=== PATIENT | female | born 1935 | race Caucasian/White ===

== ENCOUNTER 2017-04-12 09:34 | Day surgery (SDC) | payer MEDICARE, SELFPAY | END 2017-04-12 12:30 | disposition home or self-care (01) | PROVIDERS: Family Provider Family Medicine; Visit Provider Otolaryngology | DX: C44.319 Basal cell carcinoma of skin of other parts of face | CPT/HCPCS: 14040; 96375 ==

== ENCOUNTER → 2017-05-14 15:15 | Outpatient (CLI) | payer MEDICARE, SELFPAY ==
[2017-05-14 15:22] LABS: Microscopic, Urine URINE MICROSCOPIC (MICROSCOPIC)
[2017-05-14 15:34] LABS: Appearance,Urine CLOUDY (Clear); Bilirubin,Urine Negative (Negative); Blood, Urine TRACE-I (Negative); Color,Urine YELLOW (Yellow); Glucose,Urine (UA) Negative (Negative); Ketones,Urine Negative (Negative); Leukocyte Esterase,Urine LARGE (Negative); Nitrate,Urine Negative (Negative); PH,Urine 5.5 (5.0-8.5); Protein,Urine Negative (Negative); Urobilinogen,Urine 0.2 EU/dl (0.2)
[2017-05-14 16:01] LABS: Bacteria,Urine 2+ /lpf; Squamous Epithelial Cell,Urine Occasional #/hpf (0-5); WBC,Urine TNTC #/hpf (0-3)
== END ==
PROVIDERS: PCP Family Medicine; Visit Provider Family Medicine
DX: N39.0 Urinary tract infection, site not specified (principal)
CPT/HCPCS: 81001; 87086; 87088; 87186

== ENCOUNTER → 2017-06-07 10:44 | Outpatient (CLI) | payer MEDICARE, SELFPAY ==
[2017-06-07 10:53] LABS: Microscopic, Urine URINE MICROSCOPIC (MICROSCOPIC)
[2017-06-07 11:51] LABS: Appearance,Urine CLOUDY (Clear); Bilirubin,Urine Negative (Negative); Blood, Urine 2+ (Negative); Color,Urine YELLOW (Yellow); Glucose,Urine (UA) Negative (Negative); Ketones,Urine Negative (Negative); Leukocyte Esterase,Urine 2+ (Negative); Nitrate,Urine Negative (Negative); Protein,Urine 1+ (Negative); Specific Gravity, Urine 1.025 (1.005-1.030); Urobilinogen,Urine 0.2 EU/dl (0.2)
[2017-06-07 12:23] LABS: Bacteria,Urine 3+ /lpf; WBC,Urine 20-50 #/hpf (0-3)
== END ==
PROVIDERS: PCP Family Medicine; Visit Provider Family Medicine
DX: R35.0 Frequency of micturition (principal)
CPT/HCPCS: 81001; 87086; 87088; 87186

== ENCOUNTER → 2017-06-12 12:02 | Outpatient (CLI) | payer MEDICARE, SELFPAY ==
[2017-06-12 12:18] LABS: Basophils # 0.1 K/mm3 (0-0.2); Eosinophils # 0.4 K/mm3 (0.0-0.4); Eosinophils % 5.1 % (0.1-12.0); Hemoglobin 11.2 g/dL (12.2-16.2); Lymphocytes # 1.9 K/mm3 (0.7-4.5); Lymphocytes % 24.5 K/mm3 (10-50); Mean Corpuscular HGB Conc 31.1 g/dL (31.8-35.4); Mean Corpuscular Hemoglobin 27.6 pg (27.0-31.2); Mean Corpuscular Volume 88.8 fl (81-99); Monocytes # 0.6 K/mm3 (0.1-1.0); Monocytes % 7.2 % (1.7-9.3); Neutrophils # 4.7 K/mm3 (1.8-7.8); Neutrophils % 62.2 % (37.0-80.0); Platelet Count 363 K/mm3 (142-424); Red Blood Count 4.05 M/mm3 (4.20-5.40); Red Cell Distribution Width 15.2 % (11.5-17.5); White Blood Count 7.6 K/mm3 (4.8-10.8)
[2017-06-12 13:37] LABS: Anion Gap 11.6 mEq/L (5-15); Blood Urea Nitrogen 30 mg/dL (7-18); Carbon Dioxide 26 mmol/L (21.0-32.0); Chloride 106 mmol/L (98-107); Creatinine,Serum 1.82 mg/dL (0.55-1.02); Estimated Glomerular Filt Rate 27 ml/min (>60); GFR (African American) 32 ML/MIN (>60); Glucose 119 mg/dL (74-106); Potassium 4.6 mmoL/L (3.5-5.1); Sodium 139 mmol/L (136-145)
== END ==
PROVIDERS: PCP Family Medicine; Visit Provider Surgery
DX: Z01.818 Encounter for other preprocedural examination (principal); K43.2 Incisional hernia without obstruction or gangrene
CPT/HCPCS: 36415; 80048; 85025; 93005

== ENCOUNTER 2017-06-20 14:43 | Inpatient (IN) | payer MEDICARE, SELFPAY ==
[2017-06-12 12:43] VITALS: BMI 23.6
[2017-06-20] VITALS (34 sets, daily range): BP systolic 144–196; BP diastolic 71–113; PULSE 68–93; RESP 16–26; TEMP 36.2–43; O2SAT 93–99; BMI 23.3
--- NOTE | 2017-06-20 08:00 | P.PN_ITS ---
[facility] Anesthesia Checklist - Patient Identification Patient Identification: Arm Band - Structural Data Admitted From: Home Planned Operative Procedure/s: lap ventral hernia repair Consent for Planned Operative Procedure(s) Verified: Yes Verified Documents: Surgical Consent, History and Physical - NPO Status Verified Time NPO: 00:00 - Additional verifications Anesthesia Reactions: No - Airway Assessment C-Spine Mobility Assessed: Yes (mp2) TMJ Mobility Assessed: Yes Dentition: Good Dentition - Neurological Assessment Level of Consciousness: Awake, Alert - Anesthesia Plan Anesthesia Risk discussed: Yes Anesthesia Plan: Verified ASA Class: III Anesthesia Type: General [facility] Anesthesia HX I have reviewed the patient's past medical history: Yes Medical History: Reports:: Cancer (breast + colon), Gastroesophageal Reflux Disease(GERD), Hyperlipidemia, Hypertension, MRSA, Renal Insufficiency Denies:: Diabetes Mellitus Type 1, Diabetes Mellitus Type 2, Internal Pacemaker, Seizures Other Medical History: Reports: Anemia, Cataracts, Hypothyroidism. Denies: Blood Transfusion Reaction Laterality Cases: Right: Breast Biopsy, Lumpectomy, Bilateral: Cataract, Other Other Surgeries: Yes: Colon Resection, Other. No: Pacemaker Amputation: No Fractures: No *Family Hx:: Heart Attack, Hyperlipidemia, Hypertension
--- NOTE | 2017-06-20 11:22 | HMH.OPNOTE ---
Date of procedure: 06/20/17 Pre-op Diagnosis:: Incisional hernia Post-op diagnosis:: same Procedure performed:: Laparoscopic ventral hernia repair with placement of Bard ventral light ST mesh with positioning system (6 x 8 ) Surgeon:: Juvenal Rutledge MD Resident Care Manager(s):: None CLOUD AUTOMATION TESTER:: Jaren Ariza Anesthesia: GETJosué Estimated blood loss (mL): 25 Clinical Note:: Patient is an 82-year-old white female with a history of colon cancer and underwent a right colon resection in June 2016. She has been followed in the office regularly. She had presented to the office on one occasion with concerns for bulge in her abdomen. Clinically patient had an incisional hernia near her umbilical area. She underwent CT scan which interestingly was read as rectus diastases . However, patient had a definite hernia. After a period of watchful waiting it seemed to be increasing in size and she was quite concerned. Plan was made to proceed with operative repair. Plan is for laparoscopic with possibly open ventral hernia repair. Operative findings:: She had a moderate sized incisional hernia with some omental adhesions. Hernia defect measured approximately 8 x 9 cm. Operative note:: Consent was obtained. Patient was taken to the operating room. General anesthesia was induced. Stinson catheter was placed. Abdomen was prepped and draped. Left subcostal incision was made and 5 mm optical trocar was inserted as an optical Veress needle. CO2 pneumoperitoneum was then achieved 15 mmHg. Abdominal surveillance revealed some omental adhesions to the mid abdomen. 5 mm trocar was inserted in the left lower abdomen. 11 mm trocar was inserted in the right epigastric area. Ultimately an additional 5 mm trocar was inserted in the right lateral abdomen. Using mostly Metzenbaum dissection flimsy adhesions were taken down from the anterior abdominal wall. Minimal use of Mainor ultrasonic harmonic leena was employed. Once the hernia defect was clearly identified and cleaned free it was measured. It measured approximately 8 x 9 cm. Plan was made for repair with appropriate sized Bard ventral light ST mesh. 6 8 inch piece of Bard ventral light ST mesh with the balloon positioning system was brought onto the field. It was rolled and inserted into the peritoneal cavity via the 11 mm trocar site. There are very tiny incision at the umbilical area the balloon insufflation tubing was brought through the anterior abdominal wall. It was inflated positioning the mesh appropriately with at least 3 cm circumferential fascial edge overlap. Mesh was secured around its periphery with the operative fix absorbable tacking device. Several attacks were positioned somewhat medially to help eliminate any space. These note that prior to completion of the tax the balloon positioning system was deflated and withdrawn from the abdominal cavity. Repair appeared adequate with good fascial overlap. Trochars were then removed as CO2 pneumoperitoneum was evacuated. Fascia at the 11 mm trocar site was closed with a 0 Vicryl suture. Local anesthetic was infiltrated into all incisions. Skin incisions were closed with 4-0 Monocryl in a subcuticular fashion. Condition: stable Disposition: PACU Complications:: None
--- NOTE | 2017-06-20 11:36 | P.PN_ITS ---
[facility] Anesthesia Record Part II Discharge Time: 12:04 Destination: Surgical Day Care (OP Surgery) PACU nurse assessment reviewed?: Yes Patient Condition:: Good Anesthesia Complications:: None
--- NOTE | 2017-06-20 11:36 | P.PN_ITS ---
[facility] Anesthesia Record Part I Intake, IV Amount: 750 Estimated blood loss (mL): 10 Urine output (mL): 100 Blood Products used (#): none Blood Pressure: 151/90 SaO2: 96 Pulse Rate: 77 Respiratory Rate: 16 Temperature: 97.5 F Patient is:: Stable, Unarousable Stable to PACU at:: 11:34
[2017-06-20 12:45] LABS: ABG Base Excess -4.7 mmol/L (-2.4-2.3); ABG HCO3 23.2 mmhg (22.0-26.0); ABG Oxygen Saturation 98 % (90-100); ABG PH 7.21 mmol/L (7.35-7.45); ABG PO2 121.1 mmhg (80-100); Oxygen 100 %
[2017-06-20 12:46] LABS: Allen's Test Patient Unable; Source Left Radial
[2017-06-20 12:48] LABS: ABG PCO2 59.7 mmhg (35.0-45.0)
[2017-06-20 13:55] LABS: ABG Base Excess -4.7 mmol/L (-2.4-2.3); ABG HCO3 21.2 mmhg (22.0-26.0); ABG Oxygen Saturation 98 % (90-100); ABG PCO2 40.9 mmhg (35.0-45.0); ABG PH 7.33 mmol/L (7.35-7.45); ABG PO2 120.7 mmhg (80-100); ABG TCO2 22.5 mmhg (23-27)
[2017-06-20 13:56] LABS: Oxygen 35 %
[2017-06-20 13:57] LABS: Source L BRACHIAL
[2017-06-20 14:07] LABS: Microscopic,Cath URINE MICROSCOPIC (MICROSCOPIC)
[2017-06-20 14:10] LABS: Appearance,Urine/Cath CLEAR (Clear); Bilirubin,Cath Negative (Negative); Blood, Urine/Cath Negative (Negative); Color,Urine/Cath YELLOW (Yellow); Glucose,Urine/Cath (UA) Negative (Negative); Ketones,Urine/Cath Negative (Negative); Leukocyte Esterase,Cath Negative (Negative); Nitrate,Cath Negative (Negative); Protein,Urine/Cath Negative (Negative); Urobilinogen,Cath 0.2 EU/dl (0.2)
[2017-06-20 14:44] LABS: WBC,Urine/Cath Occasional #/hpf (0-3)
[2017-06-20 14:45] LABS: Bacteria,Urine/Cath TRACE /lpf
--- NOTE | 2017-06-20 16:03 | SUR.OPER ---
1130-Stinson Catheter removed at this time.
--- NOTE | 2017-06-20 16:41 | SUR.PHASEI ---
Pt into PACU lethargic, breathing independently, O2 placed at 2L minutes after arrival via nasal canula. Pt not responsive to her name, nor sternal rubs, nor cool washcloth to her face and neck, nor alcohol swab gently waived under her nose. Multiple attempts made to rouse pt who has had her eyes open without blinking and her mouth open as well since arrival. I have closed her eyes several times to keep them from drying. I have been unsuccessful with closing pt's mouth. While attempting to call Rosa WILBURN RN, OR English Composition Teacher answered phone and then came to PACU in attempt to rouse pt. Also noted to Rosa that pt's BP increasing steadily. Rosa unable to rouse pt as well. Rosa contacted Mychal Hodges CRNA, who arrived to PACU at 1235. Mychal was unable to rouse pt, but gave verbal order for Labetalol 10 mg IVP at 1240 r/t multiple readings of HTN. Mychal auscultated pt's lungs and found that pt moving decreased amt of air in right lung. Also at this time Mychal ordered ABGs to be drawn. Amie from RT was in PACU by 1245. Pt did not respond at all to arteriole draw. Stat results of ABGs called to PACU by Amie at 1255 showing CO2 at 59.7. Amie to PACU with BiPAP at 1300 and applied to pt. Noted at 1300 pt's BP increasing again, Mychal gave another order for Labetalol 10 mg IVP, given at 1304. Pt very slowly responded to us by raising her right hand, shaking her head that she did not like the BiPap, and expressing some pain by touching her abdomen and grimacing. Dr Rutledge was contacted and he admitted pt. Pt closely monitored at this time. At 1350 RT returned to draw second ABG, again pt did not make any physical response to arteriole draw. During this time report called to Abby Botello RN on MED/SURG floor. Second set of results found pH up from 7.21 to 7.33 and CO2 down from 59.7 to 40.9. Johana Segal RN on MED/SURG floor called to verify room choice, asking if Dr Rutledge did not want a step-down room for this pt. Dr Rutledge agreed to put in orders for a step down bed as soon as he finished his surgical notes. At 1400 pt transferred via bed to room 217 by Rosa Field RN and Nancy Bustos RN KEVIN BOOKER
--- NOTE | 2017-06-20 17:29 | HMH.ACPN2 ---
Internal Medicine - PN: Subj *Date: 06/20/17 *Time: 17:29 Interval history: Patient admitted after laproscopic hernia repair today. She has some post op respiratory depression and required Bi-PAP treatment for a short time. She is awake and alert now and complains of some nausea. Exam Vital signs and Labs for Last 24 Hours: Temp Pulse Resp BP Pulse Ox 98.7 F 78 20 179/99 93 L 06/20/17 16:00 06/20/17 16:08 06/20/17 16:00 06/20/17 16:00 06/20/17 16:00 Laboratory Results - last 24 hr 06/20/17 10:00: Urine Color Yellow, Urine Appearance Clear, Urine pH 6.0, Ur Specific [place] 1.010, Urine Protein Negative, Urine Glucose (UA) Negative, Urine Ketones Negative, Urine Blood Negative, Urine Nitrate Negative, Urine Bilirubin Negative, Urine Urobilinogen 0.2, Ur Leukocyte Esterase Negative, Urine RBC None, Urine WBC Occasional, Ur Squamous Epith Cells None, Urine Bacteria Trace 06/20/17 12:37: Specimen Source Left radial, O2 % 100, ABG pH 7.21 L*, ABG pCO2 59.7 H, ABG pO2 121.1 H, ABG HCO3 23.2, ABG Total CO2 25.0, ABG O2 Saturation 98, ABG Base Excess -4.7 L, Ezekiel Test Patient unable 06/20/17 13:53: Specimen Source L brachial, O2 % 35, ABG pH 7.33 L, ABG pCO2 40.9, ABG pO2 120.7 H, ABG HCO3 21.2 L, ABG Total CO2 22.5 L, ABG O2 Saturation 98, ABG Base Excess -4.7 L, Ezekiel Test N/a, Tidal Volume 12/6 16 I & O for Last 24 hours: Intake & Output 06/18/17 06/19/17 06/20/17 06/21/17 11:59 11:59 11:59 11:59 Intake Total 750 / 750 Balance 750 / 750 Weight 136 lb 1 oz - Constitutional no acute distress - *Routine Neurological Exam Present: alert, oriented X3 Assessment and Plan (1) Nausea after anesthesia Current visit: Yes Status: Acute Category: Medical Code(s): T88.59XA - Other complications of anesthesia, initial encounter; R11.0 - Nausea (2) S/P laparoscopic hernia repair Current visit: Yes Status: Acute Category: Surgical Code(s): Z98.890 - Other specified postprocedural states; Z87.19 - Personal history of other diseases of the digestive system (3) HTN (hypertension) Current visit: Yes Status: Acute Category: Medical Code(s): I10 - Essential (primary) hypertension (4) Acute respiratory acidosis Current visit: Yes Status: Acute Category: Medical Code(s): E87.2 - Acidosis - Assessment and plan all Dx Assessment and Plan for all problems:: Patient is stabilizing, will add phenergan as needed.
[2017-06-21] VITALS (22 sets, daily range): BP systolic 122–168; BP diastolic 72–96; PULSE 70–102; RESP 18–23; TEMP 36.6–36.9; O2SAT 83–97
--- NOTE | 2017-06-21 03:27 | PC.NURSE ---
PT A&O X3. SHE IS RESTING WELL AT THIS TIME. SHE STATES THAT SHE FEELS BETTER. HER PAIN HAS DECREASED SINCE BEGINNING OF SHIFT. PAIN MEDICATION WAS ADMINISTERED. PT STATES THAT PAIN LEVEL IS MAYBE A 4 WHEN SHE MOVES. SHE IS STARTING TO TURN HERSELF IN BED WITH SOME ASSISTANCE. SHE IS INCONTINENT OF HER URINE. ABDOMINAL AREA HAS FIVE DRESSINGS INTACT WITH SMALL DRAINAGE NOTED AT BEGINNING OF SHIFT. DRAINAGE WAS MARKED AND HAS NOT CHANGED. B/P HAS BEEN ELEVATED THIS SHIFT. MD WAS NOTIFIED. LISINOPRIL 20 MG ONE TIME DOSE AND METOPROLOL SUCCINATE 50 MG WAS ORDERED AND ADMINISTERED. PT HAS REMAINED NSR ON TELEMETRY. NO OTHER CONCERNS NOTED AT THIS TIME. WILL CONTINUE TO MONITOR.
[2017-06-21 06:15] LABS: Basophils % 0.1 % (0.1-2.0); Eosinophils % 0.1 % (0.1-12.0); Hematocrit 31.9 % (37.0-47.0); Hemoglobin 10.1 g/dL (12.2-16.2); Lymphocytes # 1.2 K/mm3 (0.7-4.5); Lymphocytes % 9.9 K/mm3 (10-50); Mean Corpuscular HGB Conc 31.7 g/dL (31.8-35.4); Mean Corpuscular Hemoglobin 27.3 pg (27.0-31.2); Mean Corpuscular Volume 86.2 fl (81-99); Mean Platelet Volume 7.4 fl (7.4-10.4); Monocytes # 0.7 K/mm3 (0.1-1.0); Monocytes % 5.6 % (1.7-9.3); Neutrophils # 10.3 K/mm3 (1.8-7.8); Neutrophils % 84.3 % (37.0-80.0); Platelet Count 343 K/mm3 (142-424); Red Cell Distribution Width 14.5 % (11.5-17.5); White Blood Count 12.2 K/mm3 (4.8-10.8)
[2017-06-21 06:19] LABS: Anion Gap 11.7 mEq/L (5-15); Blood Urea Nitrogen 27 mg/dL (7-18); Carbon Dioxide 26 mmol/L (21.0-32.0); Chloride 99 mmol/L (98-107); Creatinine Clearance Estimated 27 mL/min (0-300); Creatinine,Serum 1.64 mg/dL (0.55-1.02); Estimated Glomerular Filt Rate 30 ml/min (>60); GFR (African American) 36 ML/MIN (>60); Glucose 127 mg/dL (74-106); Potassium 4.7 mmoL/L (3.5-5.1); Sodium 132 mmol/L (136-145)
--- NOTE | 2017-06-21 07:30 | PC.NURSE ---
REPORT HAND OFF TO SUKH DAY
--- NOTE | 2017-06-21 07:56 | HMH.PHAVTE ---
[facility] Pharmacy VTE Monitoring - Patient Demographics Admission date: 06/20/17 Report Date: 06/21/17 Time: 07:56 Allergies/Adverse Reactions: Patient Allergies levocetirizine [From Xyzal] Allergy (Severe, Verified 06/20/17 07:19) TONGUE SWELLS, DIZZINESS linezolid [From Zyvox] Allergy (Severe, Verified 06/20/17 07:19) TONGUE SWELLS Penicillins Allergy (Intermediate, Verified 06/20/17 07:19) I-HIVES tetracycline Allergy (Intermediate, Verified 06/20/17 07:19) TONGUE SWELLS ciprofloxacin [From Cipro] Allergy (Mild, Verified 06/20/17 07:19) DIZZINESS nitrofurantoin [From Macrobid] Allergy (Mild, Verified 06/20/17 07:19) DIZZINESS Sulfa (Sulfonamide Antibiotics) Allergy (Mild, Verified 06/20/17 07:19) DIZZINESS Height: 1.63 m Weight: 64.183 kg Patient Problems: Current Active Problems Nausea after anesthesia (Acute) S/P laparoscopic hernia repair (Acute) HTN (hypertension) (Acute) Acute respiratory acidosis (Acute) - VTE Risk Labs: VTE Related Lab Results Hgb 10.1 g/dL (12.2-16.2) L 06/21/17 05:55 Hct 31.9 % (37.0-47.0) L 06/21/17 05:55 Plt Count 343 K/mm3 (142-424) 06/21/17 05:55 BUN 27 mg/dL (7-18) H 06/21/17 05:55 Creatinine 1.64 mg/dL (0.55-1.02) H 06/21/17 05:55 Estimated Creat Clear 27 mL/min (0-300) 06/21/17 05:55 VTE Score: 2 VTE Risk Level: Low Risk - Prophylaxis VTE Prophylaxis Ordered?: Yes Types of VTE Prophylaxis: IPCS Knee High Location of Applied Device: Bilateral Lower Extremeties - VTE Diagnosis Confirmed Treatment or plan recommended: Continue Current Treatment
--- NOTE | 2017-06-21 08:21 | HMH.ACPN2 ---
<Janel Booth - Last Filed: 06/21/17 08:21> Internal Medicine - PN: Subj *Date: 06/21/17 *Time: 08:21 Interval history: Patient had a rough night last night. She states she was unable to sleep due to pain in her abdomen from coughing. Trying to rest this morning. Exam Vital signs and Labs for Last 24 Hours: Temp Pulse Resp BP Pulse Ox 98.2 F 80 20 163/88 92 L 06/21/17 04:30 06/21/17 04:40 06/21/17 02:00 06/21/17 04:40 06/21/17 04:40 Laboratory Results - last 24 hr 06/20/17 10:00: Urine Color Yellow, Urine Appearance Clear, Urine pH 6.0, Ur Specific [place] 1.010, Urine Protein Negative, Urine Glucose (UA) Negative, Urine Ketones Negative, Urine Blood Negative, Urine Nitrate Negative, Urine Bilirubin Negative, Urine Urobilinogen 0.2, Ur Leukocyte Esterase Negative, Urine RBC None, Urine WBC Occasional, Ur Squamous Epith Cells None, Urine Bacteria Trace 06/20/17 12:37: Specimen Source Left radial, O2 % 100, ABG pH 7.21 L*, ABG pCO2 59.7 H, ABG pO2 121.1 H, ABG HCO3 23.2, ABG Total CO2 25.0, ABG O2 Saturation 98, ABG Base Excess -4.7 L, Ezekiel Test Patient unable 06/20/17 13:53: Specimen Source L brachial, O2 % 35, ABG pH 7.33 L, ABG pCO2 40.9, ABG pO2 120.7 H, ABG HCO3 21.2 L, ABG Total CO2 22.5 L, ABG O2 Saturation 98, ABG Base Excess -4.7 L, Ezekiel Test N/a, Tidal Volume 12/6 16 06/21/17 05:55: WBC 12.2 H, RBC 3.70 L, Hgb 10.1 L, Hct 31.9 L, MCV 86.2, MCH 27.3, MCHC 31.7 L, RDW 14.5, Plt Count 343, MPV 7.4, Neut % (Auto) 84.3 H, Lymph % (Auto) 9.9 L, [place] % (Auto) 5.6, Eos % (Auto) 0.1, Baso % (Auto) 0.1, Neut # (Auto) 10.3 H, Lymph # (Auto) 1.2, [place] # (Auto) 0.7, Eos # (Auto) 0.0, Baso # (Auto) 0.0 06/21/17 05:55: Sodium 132 L, Potassium 4.7, Chloride 99, Carbon Dioxide 26, Anion Gap 11.7, BUN 27 H, Creatinine 1.64 H, Estimated Creat Clear 27, Estimated GFR 30 L, Est GFR ( Amer) 36 L, Glucose 127 H I & O for Last 24 hours: Intake & Output 06/18/17 06/19/17 06/20/17 06/21/17 11:59 11:59 11:59 11:59 Intake Total 750 / 750 881 / 881 Balance 750 / 750 881 / 881 Weight 141 lb 8 oz - Constitutional no acute distress - *Routine Respiratory Exam Present: diminished air movement - *Routine Cardiovascular Exam Present: RRR Assessment and Plan (1) Nausea after anesthesia Current visit: Yes Status: Acute Category: Medical Code(s): T88.59XA - Other complications of anesthesia, initial encounter; R11.0 - Nausea (2) S/P laparoscopic hernia repair Current visit: Yes Status: Acute Category: Surgical Code(s): Z98.890 - Other specified postprocedural states; Z87.19 - Personal history of other diseases of the digestive system (3) HTN (hypertension) Current visit: Yes Status: Acute Category: Medical Code(s): I10 - Essential (primary) hypertension (4) Acute respiratory acidosis Current visit: Yes Status: Acute Category: Medical Code(s): E87.2 - Acidosis - Assessment and plan all Dx Assessment and Plan for all problems:: Continue care as per surgery. <Delfin Mccauley - Last Filed: 06/21/17 08:46> Internal Medicine - PN: Subj *Date: 06/21/17 *Time: 08:40 Exam Vital signs and Labs for Last 24 Hours: Temp Pulse Resp BP Pulse Ox 98.2 F 80 20 163/88 92 L 06/21/17 04:30 06/21/17 04:40 06/21/17 02:00 06/21/17 04:40 06/21/17 04:40 Laboratory Results - last 24 hr 06/20/17 10:00: Urine Color Yellow, Urine Appearance Clear, Urine pH 6.0, Ur Specific [place] 1.010, Urine Protein Negative, Urine Glucose (UA) Negative, Urine Ketones Negative, Urine Blood Negative, Urine Nitrate Negative, Urine Bilirubin Negative, Urine Urobilinogen 0.2, Ur Leukocyte Esterase Negative, Urine RBC None, Urine WBC Occasional, Ur Squamous Epith Cells None, Urine Bacteria Trace 06/20/17 12:37: Specimen Source Left radial, O2 % 100, ABG pH 7.21 L*, ABG pCO2 59.7 H, ABG pO2 121.1 H, ABG HCO3 23.2, ABG Total CO2 25.0, ABG O2 Saturation 98, ABG Base Excess -4.7 L, Ezekiel Test
--- NOTE | 2017-06-21 08:39 | HMH.ACPN2 ---
Internal Medicine - PN: Subj *Date: 06/21/17 *Time: 08:39 Interval history: Patient had some nausea last night. Minimal oral intake but wants to try solid food. No shortness of air. Complains mainly of pain with coughing. Still on nasal canula. Exam Vital signs and Labs for Last 24 Hours: Temp Pulse Resp BP Pulse Ox 98.2 F 80 20 163/88 92 L 06/21/17 04:30 06/21/17 04:40 06/21/17 02:00 06/21/17 04:40 06/21/17 04:40 Laboratory Results - last 24 hr 06/20/17 10:00: Urine Color Yellow, Urine Appearance Clear, Urine pH 6.0, Ur Specific [place] 1.010, Urine Protein Negative, Urine Glucose (UA) Negative, Urine Ketones Negative, Urine Blood Negative, Urine Nitrate Negative, Urine Bilirubin Negative, Urine Urobilinogen 0.2, Ur Leukocyte Esterase Negative, Urine RBC None, Urine WBC Occasional, Ur Squamous Epith Cells None, Urine Bacteria Trace 06/20/17 12:37: Specimen Source Left radial, O2 % 100, ABG pH 7.21 L*, ABG pCO2 59.7 H, ABG pO2 121.1 H, ABG HCO3 23.2, ABG Total CO2 25.0, ABG O2 Saturation 98, ABG Base Excess -4.7 L, Ezekiel Test Patient unable 06/20/17 13:53: Specimen Source L brachial, O2 % 35, ABG pH 7.33 L, ABG pCO2 40.9, ABG pO2 120.7 H, ABG HCO3 21.2 L, ABG Total CO2 22.5 L, ABG O2 Saturation 98, ABG Base Excess -4.7 L, Ezekiel Test N/a, Tidal Volume 12/6 16 06/21/17 05:55: WBC 12.2 H, RBC 3.70 L, Hgb 10.1 L, Hct 31.9 L, MCV 86.2, MCH 27.3, MCHC 31.7 L, RDW 14.5, Plt Count 343, MPV 7.4, Neut % (Auto) 84.3 H, Lymph % (Auto) 9.9 L, [place] % (Auto) 5.6, Eos % (Auto) 0.1, Baso % (Auto) 0.1, Neut # (Auto) 10.3 H, Lymph # (Auto) 1.2, [place] # (Auto) 0.7, Eos # (Auto) 0.0, Baso # (Auto) 0.0 06/21/17 05:55: Sodium 132 L, Potassium 4.7, Chloride 99, Carbon Dioxide 26, Anion Gap 11.7, BUN 27 H, Creatinine 1.64 H, Estimated Creat Clear 27, Estimated GFR 30 L, Est GFR ( Amer) 36 L, Glucose 127 H I & O for Last 24 hours: Intake & Output 06/18/17 06/19/17 06/20/17 06/21/17 11:59 11:59 11:59 11:59 Intake Total 750 / 750 881 / 881 Balance 750 / 750 881 / 881 Weight 141 lb 8 oz - Constitutional no acute distress - *Routine Abdominal Exam Present: soft, tenderness Assessment and Plan (1) Nausea after anesthesia Current visit: Yes Status: Acute Category: Medical Code(s): T88.59XA - Other complications of anesthesia, initial encounter; R11.0 - Nausea (2) S/P laparoscopic hernia repair Current visit: Yes Status: Acute Category: Surgical Code(s): Z98.890 - Other specified postprocedural states; Z87.19 - Personal history of other diseases of the digestive system (3) HTN (hypertension) Current visit: Yes Status: Acute Category: Medical Code(s): I10 - Essential (primary) hypertension (4) Acute respiratory acidosis Current visit: Yes Status: Acute Category: Medical Code(s): E87.2 - Acidosis - Assessment and plan all Dx Assessment and Plan for all problems:: Plan to advance diet. Increase activity. Wean O2. Hopeful discharge within 24 hours.
--- NOTE | 2017-06-21 19:15 | PC.NURSE ---
PT FULL CODE, REPORT GIVEN BY DAYANA
[2017-06-22] VITALS (13 sets, daily range): BP systolic 97–158; BP diastolic 65–91; PULSE 70–100; RESP 16–22; TEMP 36.6–37.2; O2SAT 82–95; BMI 24.6
--- NOTE | 2017-06-22 05:42 | PC.NURSE ---
PT SLEPT MOST OF SHIFT. C/0 ABD PAIN BEGINNING OF SHIFT ONLY OF THIS TIME. IV INFUSING LR W/O REDNESS OR EDEMA; VSS. 5 INCISIONS--3 HAVE TELFA/TEGADERM AND 2 WITH STERI-STRIPS ONLY. NSR. PT WALKED IN [place] BEGINNING OF SHIFT. PT STABLE. WILL CONTINUE TO MONITOR. REPORT TO BE GIVEN TO ONCOMING NURSE.
[2017-06-22 05:57] LABS: Basophils % 0.2 % (0.1-2.0); Eosinophils % 0.3 % (0.1-12.0); Hematocrit 32.1 % (37.0-47.0); Hemoglobin 9.9 g/dL (12.2-16.2); Lymphocytes # 1.6 K/mm3 (0.7-4.5); Lymphocytes % 12.2 K/mm3 (10-50); Mean Corpuscular HGB Conc 30.9 g/dL (31.8-35.4); Mean Corpuscular Hemoglobin 27.4 pg (27.0-31.2); Mean Corpuscular Volume 88.7 fl (81-99); Mean Platelet Volume 7.3 fl (7.4-10.4); Monocytes # 0.8 K/mm3 (0.1-1.0); Monocytes % 5.8 % (1.7-9.3); Neutrophils # 10.6 K/mm3 (1.8-7.8); Neutrophils % 81.6 % (37.0-80.0); Platelet Count 333 K/mm3 (142-424); Red Blood Count 3.61 M/mm3 (4.20-5.40); Red Cell Distribution Width 14.6 % (11.5-17.5)
[2017-06-22 06:04] LABS: Anion Gap 12.3 mEq/L (5-15); Blood Urea Nitrogen 28 mg/dL (7-18); Carbon Dioxide 26 mmol/L (21.0-32.0); Chloride 100 mmol/L (98-107); Creatinine Clearance Estimated 25 mL/min (0-300); Creatinine,Serum 1.79 mg/dL (0.55-1.02); Estimated Glomerular Filt Rate 27 ml/min (>60); GFR (African American) 33 ML/MIN (>60); Glucose 103 mg/dL (74-106); Potassium 4.3 mmoL/L (3.5-5.1); Sodium 134 mmol/L (136-145)
--- NOTE | 2017-06-22 08:03 | HMH.ACPN2 ---
Internal Medicine - PN: Subj *Date: 06/22/17 *Time: 08:03 Interval history: Patient states she feels much better . Tolerating bland diet without difficulty, no nausea. Denies shortness of air but still on 1L per NC. Has been out of bed several times yesterday. Exam Vital signs and Labs for Last 24 Hours: Temp Pulse Resp BP Pulse Ox 98.0 F 92 H 20 145/83 93 L 06/22/17 04:00 06/22/17 06:00 06/22/17 06:00 06/22/17 06:00 06/22/17 06:00 Laboratory Results - last 24 hr 06/22/17 05:40: WBC 13.0 H, RBC 3.61 L, Hgb 9.9 L, Hct 32.1 L, MCV 88.7, MCH 27.4, MCHC 30.9 L, RDW 14.6, Plt Count 333, MPV 7.3 L, Neut % (Auto) 81.6 H, Lymph % (Auto) 12.2, [place] % (Auto) 5.8, Eos % (Auto) 0.3, Baso % (Auto) 0.2, Neut # (Auto) 10.6 H, Lymph # (Auto) 1.6, [place] # (Auto) 0.8, Eos # (Auto) 0.0, Baso # (Auto) 0.0 06/22/17 05:40: Sodium 134 L, Potassium 4.3, Chloride 100, Carbon Dioxide 26, Anion Gap 12.3, BUN 28 H, Creatinine 1.79 H, Estimated Creat Clear 25, Estimated GFR 27 L, Est GFR ( Amer) 33 L, Glucose 103 I & O for Last 24 hours: Intake & Output 06/19/17 06/20/17 06/21/17 06/22/17 11:59 11:59 11:59 11:59 Intake Total 750 / 750 881 / 881 840 / 840 Output Total 300 / 300 Balance 750 / 750 881 / 881 540 / 540 Weight 141 lb 8 oz 144 lb 3 oz - Constitutional no acute distress - *Routine Abdominal Exam Present: soft, tenderness Assessment and Plan (1) Nausea after anesthesia Current visit: Yes Status: Acute Category: Medical Code(s): T88.59XA - Other complications of anesthesia, initial encounter; R11.0 - Nausea (2) S/P laparoscopic hernia repair Current visit: Yes Status: Acute Category: Surgical Code(s): Z98.890 - Other specified postprocedural states; Z87.19 - Personal history of other diseases of the digestive system (3) HTN (hypertension) Current visit: Yes Status: Acute Category: Medical Code(s): I10 - Essential (primary) hypertension (4) Acute respiratory acidosis Current visit: Yes Status: Acute Category: Medical Code(s): E87.2 - Acidosis - Assessment and plan all Dx Assessment and Plan for all problems:: Essentially ready for discharge. Will check with Dr. Mccauley regarding pulmonary status. Hopefully can discharge off home oxygen.
--- NOTE | 2017-06-22 08:23 | HMH.ACPN2 ---
<Janel Booth - Last Filed: 06/22/17 08:23> Internal Medicine - PN: Subj *Date: 06/22/17 *Time: 08:23 Interval history: Patient states she is feeling better today. Less short of breath. Her nausea has resolved. She was able to eat some breakfast this morning. Exam Vital signs and Labs for Last 24 Hours: Temp Pulse Resp BP Pulse Ox 98.0 F 92 H 20 145/83 93 L 06/22/17 04:00 06/22/17 06:00 06/22/17 06:00 06/22/17 06:00 06/22/17 06:00 Laboratory Results - last 24 hr 06/22/17 05:40: WBC 13.0 H, RBC 3.61 L, Hgb 9.9 L, Hct 32.1 L, MCV 88.7, MCH 27.4, MCHC 30.9 L, RDW 14.6, Plt Count 333, MPV 7.3 L, Neut % (Auto) 81.6 H, Lymph % (Auto) 12.2, [place] % (Auto) 5.8, Eos % (Auto) 0.3, Baso % (Auto) 0.2, Neut # (Auto) 10.6 H, Lymph # (Auto) 1.6, [place] # (Auto) 0.8, Eos # (Auto) 0.0, Baso # (Auto) 0.0 06/22/17 05:40: Sodium 134 L, Potassium 4.3, Chloride 100, Carbon Dioxide 26, Anion Gap 12.3, BUN 28 H, Creatinine 1.79 H, Estimated Creat Clear 25, Estimated GFR 27 L, Est GFR ( Amer) 33 L, Glucose 103 I & O for Last 24 hours: Intake & Output 06/19/17 06/20/17 06/21/17 06/22/17 11:59 11:59 11:59 11:59 Intake Total 750 / 750 881 / 881 840 / 840 Output Total 300 / 300 Balance 750 / 750 881 / 881 540 / 540 Weight 141 lb 8 oz 144 lb 3 oz - Constitutional no acute distress - *Routine Respiratory Exam Present: CTA bilaterally Comments: better air movement - *Routine Cardiovascular Exam Present: RRR Assessment and Plan (1) Nausea after anesthesia Current visit: Yes Status: Acute Category: Medical Code(s): T88.59XA - Other complications of anesthesia, initial encounter; R11.0 - Nausea (2) S/P laparoscopic hernia repair Current visit: Yes Status: Acute Category: Surgical Code(s): Z98.890 - Other specified postprocedural states; Z87.19 - Personal history of other diseases of the digestive system (3) HTN (hypertension) Current visit: Yes Status: Acute Category: Medical Code(s): I10 - Essential (primary) hypertension (4) Acute respiratory acidosis Current visit: Yes Status: Acute Category: Medical Code(s): E87.2 - Acidosis - Assessment and plan all Dx Assessment and Plan for all problems:: Dr. Rutledge feels the patient can possibly be discharged today. At this time she is currently on 1 L of oxygen and her sats are ranging from 88-92%. Will need to wean her oxygen today before discharge. <Delfin Mccauley - Last Filed: 06/22/17 08:40> Internal Medicine - PN: Subj *Date: 06/22/17 *Time: 08:39 Exam Vital signs and Labs for Last 24 Hours: Temp Pulse Resp BP Pulse Ox 98.0 F 92 H 20 145/83 93 L 06/22/17 04:00 06/22/17 06:00 06/22/17 06:00 06/22/17 06:00 06/22/17 06:00 Laboratory Results - last 24 hr 06/22/17 05:40: WBC 13.0 H, RBC 3.61 L, Hgb 9.9 L, Hct 32.1 L, MCV 88.7, MCH 27.4, MCHC 30.9 L, RDW 14.6, Plt Count 333, MPV 7.3 L, Neut % (Auto) 81.6 H, Lymph % (Auto) 12.2, [place] % (Auto) 5.8, Eos % (Auto) 0.3, Baso % (Auto) 0.2, Neut # (Auto) 10.6 H, Lymph # (Auto) 1.6, [place] # (Auto) 0.8, Eos # (Auto) 0.0, Baso # (Auto) 0.0 06/22/17 05:40: Sodium 134 L, Potassium 4.3, Chloride 100, Carbon Dioxide 26, Anion Gap 12.3, BUN 28 H, Creatinine 1.79 H, Estimated Creat Clear 25, Estimated GFR 27 L, Est GFR ( Amer) 33 L, Glucose 103 I & O for Last 24 hours: Intake & Output 06/19/17 06/20/17 06/21/17 06/22/17 11:59 11:59 11:59 11:59 Intake Total 750 / 750 881 / 881 840 / 840 Output Total 300 / 300 Balance 750 / 750 881 / 881 540 / 540 Weight 141 lb 8 oz 144 lb 3 oz Assessment and Plan (1) Nausea after anesthesia Current visit: Yes Status: Acute Category: Medical Code(s): T88.59XA - Other complications of anesthesia, initial encounter; R11.0 - Nausea (2) S/P laparoscopic hernia repair Current visit: Yes Status: Acute Category: Surgical Code(s): Z98.890 - Other specified postprocedural states; Z87.19 - P
[2017-06-22 09:17] LABS: Hep A Ab, IgM Negative (Negative); Hepatitis B Core Antibody IgM Negative (Negative); Hepatitis B Surface Antigen Negative (Negative)
[2017-06-22 11:38] LABS: Hepatitis C Antibody 0.1 s/co ratio (0.0-0.9)
--- NOTE | 2017-06-22 11:38 | SW/DCPLANNER ---
I have spoke with this patient regarding discharge plans. Patient has stated that she has neighbors and family that check on her daily. Patient did not have any needs at this time. Patient could potentially discharge home later on this afternoon.
--- NOTE | 2017-06-22 14:25 | PC.NURSE ---
AT APPROXIMATELY 1230 OXYGEN WAS TAKEN OFF OF PATIENT TO SEE HOW SHE TOLERATED WITHOUT THE 1 LPNC. HER OXYGEN DROPPED TO APPROXIMATELY 82% THE OXYGEN AT 1 LITER WAS REAPPLIED AND OXYGEN WENT UP TO 91%. SHE CONTINUES TO USE HER INCENTIVE SPIROMETER EVERY HOUR AND PRN. WILL TRY AGAIN LATER TO TAKE OXYGEN OFF AND RE-EVALUATE. JENNIFER DOMINGUEZ, MSN, RN
--- NOTE | 2017-06-22 15:02 | P.PN_ITS ---
Internal Medicine - PN: Subj *Date: 06/22/17 *Time: 14:58 Interval history: Attempt was made to wean her oxygen from 1 L. When she is on room air she drops her saturation to approximately 82%. Consideration was being given for possible discharge on home oxygen. However, patient states that she is extremely weak. She is unable to stand on her own without assistance. She is quite concerned with being discharged this condition. Exam Vital signs and Labs for Last 24 Hours: Temp Pulse Resp BP Pulse Ox 98.4 F 88 18 97/65 92 L 06/22/17 12:00 06/22/17 12:00 06/22/17 12:00 06/22/17 12:00 06/22/17 12:35 Laboratory Results - last 24 hr 06/21/17 05:55: Hepatitis A IgM Ab Negative, Hep Bs Antigen Negative, Hep B Core IgM Ab Negative, Hepatitis C Antibody 0.1 06/22/17 05:40: WBC 13.0 H, RBC 3.61 L, Hgb 9.9 L, Hct 32.1 L, MCV 88.7, MCH 27.4, MCHC 30.9 L, RDW 14.6, Plt Count 333, MPV 7.3 L, Neut % (Auto) 81.6 H, Lymph % (Auto) 12.2, [place] % (Auto) 5.8, Eos % (Auto) 0.3, Baso % (Auto) 0.2, Neut # (Auto) 10.6 H, Lymph # (Auto) 1.6, [place] # (Auto) 0.8, Eos # (Auto) 0.0, Baso # (Auto) 0.0 06/22/17 05:40: Sodium 134 L, Potassium 4.3, Chloride 100, Carbon Dioxide 26, Anion Gap 12.3, BUN 28 H, Creatinine 1.79 H, Estimated Creat Clear 25, Estimated GFR 27 L, Est GFR ( Amer) 33 L, Glucose 103 I & O for Last 24 hours: Intake & Output 06/20/17 06/21/17 06/22/17 06/23/17 11:59 11:59 11:59 11:59 Intake Total 750 / 750 881 / 881 840 / 840 240 / 240 Output Total 300 / 300 Balance 750 / 750 881 / 881 540 / 540 240 / 240 Weight 141 lb 8 oz 144 lb 3 oz 144 lb 2.988 oz - *Routine Respiratory Exam Present: rhonchi - *Routine Abdominal Exam Present: soft, tenderness Assessment and Plan (1) Nausea after anesthesia Current visit: Yes Status: Acute Category: Medical Code(s): T88.59XA - Other complications of anesthesia, initial encounter; R11.0 - Nausea (2) S/P laparoscopic hernia repair Current visit: Yes Status: Acute Category: Surgical Code(s): Z98.890 - Other specified postprocedural states; Z87.19 - Personal history of other diseases of the digestive system (3) HTN (hypertension) Current visit: Yes Status: Acute Category: Medical Code(s): I10 - Essential (primary) hypertension (4) Acute respiratory acidosis Current visit: Yes Status: Acute Category: Medical Code(s): E87.2 - Acidosis - Assessment and plan all Dx Assessment and Plan for all problems:: Due to patient's desaturations on room air and due to her deconditioned postoperative state plan for continued inpatient management at this time. Will consult physical therapy.
--- NOTE | 2017-06-22 16:09 | HMH.PTEV ---
Physical Therapy Evaluation Rehab PT IP Evaluation Start: 06/22/17 14:48 Freq: ONCE Status: Active Protocol: Document 06/22/17 16:06 PHORNE (Rec: 06/22/17 16:09 PHORNE [id number]) Subjective/History History History 82 yof adm to [facility] for lap umbilical hernia repair. Subjective Subjective Pt c/o pain around surgical site as expected. Rehab PT IP Eval Objective Appearance Patient Behavior Appropriate Patient Orientation Person Place Time Difficulty following instructions none Speech Pattern Clear Ambulation Patient Able to Ambulate Yes Ambulation Observation IP General Gait Pattern Observation Antalgic Gait Ambulation Distance (feet) 5 Ambulation Assistive Device None Balance Ability to Arise Able, uses arms to help Sitting Balance Steady, safe Standing Balance Steady, wide stance Dynamic Sitting Balance Ability Fair Dynamic Standing Balance Ability Fair Transfers Bed Transfer Ability Minimal x 1 (25% assist) Chair Transfer Ability Minimal x 1 (25% assist) Sit to Stand Bed Transfer Ability Minimal x 1 (25% assist) Sit to Stand Chair Transfer Ability Minimal x 1 (25% assist) ROM All Extremities PT ROM Status WFL MMT All Extremities PT MMT WFL Rehab PT IP prob,goals,plan Problems Date of Evaluation: 06/22/17 PT IP Problems Bed Mobility Transfers Gait Rehab Potential Rehab Potential Good Plan PT Intervention Plan Bed Mobility Transfers Gait PT Plan Frequency BID Duration LOS Discharge Goals Bed Transfer Ability Contact Guard/Hand Hold Sit to Stand Chair Transfer Ability Contact Guard/Hand Hold Ambulation Distance (feet) 25 Discharge Plan PT Discharge Plan Pt is appropriate to return home once medically stable. Recommend home health therapy services. G -code Required Yes Eval Complexity Eval Charge Codes 88874 - Moderate Complexity G Codes PT Current Status Mobility PT Current Status Modifier CJ-At least 20% but less than 40% impaired, limited or restricted PT Goal Status Mobility PT Goal Status Modifer CJ-At least 20% but less than
--- NOTE | 2017-06-22 16:39 | PC.NURSE ---
AT 1500 HOURS ATTEMPTED TO TAKE OXYGEN OFF AGAIN DROPPED TO 83%. OXYGEN BACK UP TO 93% AFTER OXYGEN APPLIED. JENNIFER DOMINGUEZ, MSN, RN
--- NOTE | 2017-06-22 18:01 | PC.NURSE ---
82 YEAR OLD WHITE FEMALE PRESENTED TO THE HOSPITAL FOR A LAP HERNIA REPAIR ON 06/20/17. SHE WAS ADMITTED TO THE FLOOR AFTER SURGERY. SHE HAS DONE FAIR TODAY WITH NO INCREASED SOB. HER NAUSEA HAS ALSO SUBSIDED TODAY. SHE HAS USED HER INCENTIVE SPIROMETER HOURLY AND PRN. SHE CONTINUES ON 1 LITER OF OXYGEN AND WE HAVE TRIED WEENING HER TODAY BUT WERE UNSUCCESSFUL. OXYGEN SATURATIONS HAVE FALLEN RANGING FROM 83-88% WITHOUT THE OXYGEN. I HAVE TALKED WITH DR. FITCH AND SHE REMAINS ON 1 LITER OF OXYGEN AT THIS TIME. HER OXYGEN HAS INCREASED TO 90-93% WITH OXYGEN. I HAVE ENCOURAGED DEEP BREATHING AND COUGHING EXERCISES ALONG WITH HER INCENTIVE SPIROMETER. PHYSICAL THERAPY EVALUATED THIS AFTERNOON. SHE HAS AMBULATED IN THE ROOM TODAY AND TOLERATED THIS WELL. SHE REFUSES GIO HOSE AND ABDOMINAL INCISIONS ARE CLEAN DRY AND INTACT. HER PLANS ARE TO DISCHARGE HOME TOMORROW. WILL CONTINUE TO MONITOR. JENNIFER DOMINGUEZ, MSN, RN
[2017-06-23] VITALS (9 sets, daily range): BP systolic 104–153; BP diastolic 64–83; PULSE 80–90; RESP 16–26; TEMP 36.3–37.2; O2SAT 92–95
--- NOTE | 2017-06-23 05:26 | PC.NURSE ---
C/O PAIN IN ABDOMEN FOLLOWING MOVEMENT/AMBULATION, RATED 6/10 ON 0-10 RECLAIMER, PAIN MEDICATION ADMINISTERED PER MAR. ON REASSESSMENT, PT NOTED RESTING WITH EYES CLOSED. ABDOMEN NOTED FLAT, BOWEL SOUNDS HYPOACTIVE PER AUSCULTATION, ABDOMEN SOFT AND NON-TENDER PER PALPATION. 5 DRESSINGS NOTED ON ABDOMEN. DRESSING ON RUQ AND LLQ NOTED WITH SCANT AMOUNT OF SEROSANGUINEOUS DRAINAGE BUT REMAINED INTACT, REST OF DRESSINGS WERE NOTED CDI, NO S/S OF INFECTION NOTED. LUNG SOUNDS NOTED WITH FAINT EXPIRATORY RHONCHI. REINFORCED IMPORTANCE OF USE OF INCENTIVE SPIROMETER, COUGH, DEEP BREATHING AND EDUCATION PROVIDED ON USE OF INCENTIVE SPIROMETER. PT DEMONSTRATED UNDERSTANDING OF INCENTIVE SPIROMETER BUT POOR INSPIRATION WAS NOTED. UNABLE TO GET IT TO 750, PT GOT TO 500 ON INHALATION. PT STATED IT JUST HURTS TO TAKE DEEP BREATHS. I GOT IT UP TO THE 750 ONE TIME BUT I JUST CAN'T ANYMORE. RN INSTRUCTED PT TO SPLINT ABDOMEN WITH PILLOW WHILE COUGHING/DEEP BREATHING AND PRN PAIN MEDICATION IS AVAILABLE ON REQUEST. VSS. WILL CONTINUE TO MONITOR.
--- NOTE | 2017-06-23 06:35 | PC.NURSE ---
ATTEMPTED TO WEAN OXYGEN TO RA, O2SATS NOTED 86% ON RA. 1LNC REAPPLIED AND TOLERATED WELL. NSR NOTED PER USER EXPERIENCE LEAD.
--- NOTE | 2017-06-23 07:17 | PC.NURSE ---
REPORT GIVEN TO Josué VALENZUELA W/C
--- NOTE | 2017-06-23 08:11 | HMH.ACPN2 ---
<Janel Booth - Last Filed: 06/23/17 08:11> Internal Medicine - PN: Subj *Date: 06/23/17 *Time: 08:11 Interval history: Patient states she feels about the same today. She states that they tried to wean her oxygen but her sats dropped down into the 80s. Still only on 1 L at this time. Her pain is under control. Exam Vital signs and Labs for Last 24 Hours: Temp Pulse Resp BP Pulse Ox 98.9 F 80 16 104/64 92 L 06/23/17 07:55 06/23/17 07:55 06/23/17 07:55 06/23/17 07:55 06/23/17 07:55 Laboratory Results - last 24 hr 06/21/17 05:55: Hepatitis A IgM Ab Negative, Hep Bs Antigen Negative, Hep B Core IgM Ab Negative, Hepatitis C Antibody 0.1 I & O for Last 24 hours: Intake & Output 06/20/17 06/21/17 06/22/17 06/23/17 11:59 11:59 11:59 11:59 Intake Total 750 / 750 881 / 881 840 / 840 730 / 730 Output Total 300 / 300 Balance 750 / 750 881 / 881 540 / 540 730 / 730 Weight 141 lb 8 oz 144 lb 3 oz 144 lb 2.988 oz - Constitutional no acute distress - *Routine Respiratory Exam Present: rales (bilaterally) - *Routine Cardiovascular Exam Present: RRR - *Routine Abdominal Exam Present: normoactive bowel sounds, tenderness (around incision sites) - *Routine Extremities Exam Absent: edema Assessment and Plan (1) Nausea after anesthesia Current visit: Yes Status: Acute Category: Medical Code(s): T88.59XA - Other complications of anesthesia, initial encounter; R11.0 - Nausea (2) S/P laparoscopic hernia repair Current visit: Yes Status: Acute Category: Surgical Code(s): Z98.890 - Other specified postprocedural states; Z87.19 - Personal history of other diseases of the digestive system (3) HTN (hypertension) Current visit: Yes Status: Acute Category: Medical Code(s): I10 - Essential (primary) hypertension (4) Acute respiratory acidosis Current visit: Yes Status: Acute Category: Medical Code(s): E87.2 - Acidosis - Assessment and plan all Dx Assessment and Plan for all problems:: We will discuss further care with Dr. Mccauley. Patient may need a chest x-ray or if discharged will need to go home on oxygen. <Delfin Mccauley - Last Filed: 06/23/17 09:57> Internal Medicine - PN: Subj *Date: 06/23/17 *Time: 09:54 Exam Vital signs and Labs for Last 24 Hours: Temp Pulse Resp BP Pulse Ox 98.9 F 80 16 104/64 92 L 06/23/17 07:55 06/23/17 07:55 06/23/17 07:55 06/23/17 07:55 06/23/17 07:55 Laboratory Results - last 24 hr 06/21/17 05:55: Hepatitis A IgM Ab Negative, Hep Bs Antigen Negative, Hep B Core IgM Ab Negative, Hepatitis C Antibody 0.1 I & O for Last 24 hours: Intake & Output 06/20/17 06/21/17 06/22/17 06/23/17 11:59 11:59 11:59 11:59 Intake Total 750 / 750 881 / 881 840 / 840 730 / 730 Output Total 300 / 300 Balance 750 / 750 881 / 881 540 / 540 730 / 730 Weight 141 lb 8 oz 144 lb 3 oz 144 lb 2.988 oz Assessment and Plan (1) S/P laparoscopic hernia repair Current visit: Yes Status: Acute Category: Surgical Code(s): Z98.890 - Other specified postprocedural states; Z87.19 - Personal history of other diseases of the digestive system (2) Hypoxia Current visit: Yes Status: Acute Category: Medical Code(s): R09.02 - Hypoxemia (3) Nausea after anesthesia Current visit: Yes Status: Resolved Category: Medical Code(s): T88.59XA - Other complications of anesthesia, initial encounter; R11.0 - Nausea (4) HTN (hypertension) Current visit: Yes Status: Chronic Category: Medical Code(s): I10 - Essential (primary) hypertension - Assessment and plan all Dx Assessment and Plan for all problems:: Saw patient, will check CXR today as she continues to be hypoxic on room air.
--- NOTE | 2017-06-23 08:19 | HMH.GSPN ---
Subjective Patient reports: no new complaints Exam Vital signs and Labs for Last 24 Hours: Temp Pulse Resp BP Pulse Ox 98.9 F 80 16 104/64 92 L 06/23/17 07:55 06/23/17 07:55 06/23/17 07:55 06/23/17 07:55 06/23/17 07:55 Laboratory Results - last 24 hr 06/21/17 05:55: Hepatitis A IgM Ab Negative, Hep Bs Antigen Negative, Hep B Core IgM Ab Negative, Hepatitis C Antibody 0.1 I & O for Last 24 hours: Intake & Output 06/20/17 06/21/17 06/22/17 06/23/17 11:59 11:59 11:59 11:59 Intake Total 750 / 750 881 / 881 840 / 840 730 / 730 Output Total 300 / 300 Balance 750 / 750 881 / 881 540 / 540 730 / 730 Weight 141 lb 8 oz 144 lb 3 oz 144 lb 2.988 oz Narrative: still requiring 1 L nasal cannula - Constitutional no acute distress - *Routine Respiratory Exam Absent: respiratory distress - *Routine Abdominal Exam Present: soft Comments: Incisions clean, dry, and intact. No erythema. Progress Note: A&P (1) S/P laparoscopic hernia repair Status: Acute Assessment and plan: Overall, doing well status post laparoscopic hernia repair. Likely discharge home soon when cleared medically. She may require home oxygen. Current Visit: Yes (2) Hypoxia Status: Acute Assessment and plan: Still requiring 1 L nasal cannula Further management as per primary care provider Current Visit: Yes
--- NOTE | 2017-06-23 09:58 | XR_ITS ---
XR chest 2V HISTORY: Hypoxia following surgery ITS.REASON: post op hypoxia ORDERING PHYSICIAN: Juvenal Rutledge MD PATIENT AGE: 82 years COMPARISON: 02/05/2017 FINDINGS: There is cardiomegaly. 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 No obvious CHF. There is chronic consolidation in the left lower lobe as seen on the previous exam. This however is somewhat worse on today's study consistent with superimposed volume loss or infiltrate. There are small bilateral pleural effusions. IMPRESSION: Cardiomegaly with chronic fibrotic changes with chronic consolidation in the left lower lobe is somewhat worse suggesting superimposed atelectasis or infiltrate with small bilateral effusions
--- NOTE | 2017-06-23 09:59 | PC.NURSE ---
0945 - Attempted to wean pt from oxygen. Pt desaturated to 85 on Room Air within 5 minutes. Pt returned on O2 @ 1LPM via NC. O2 saturation returned to 92. Dr Mccauley aware of inability to wean from O2 and will write orders.
--- NOTE | 2017-06-23 16:51 | PC.NURSE ---
Pt has been A&Ox3 this shift in NAD. VSS. Afebrile. Lungs /c crackles scattered. CXR completed this shift resulting as:Cardiomegaly with chronic fibrotic changes with chronic consolidation in the left lower lobe is somewhat worse suggesting superimposed atelectasis or infiltrate with small bilateral effusions. Pt started on IV antibiotics this shift. Sputum culture specimen obtained. O2 @ 1LPM via NC in place to maintain O2 sats > 90%. (L) hand IV saline locked; no s/s of infiltration noted. Flushes easily /c good blood return. Abd scope sites C/D/I with steri strips. Pt reports passing gas but no BM since surgery; bowel sounds active x4 quads. Pt reported dull ache of abd this shift and required PRN [place] x1 as of this documentation /c good relief. Pt refused BLE GIO hose. Bed in low position. Call clark within reach. Will continue to monitor.
--- NOTE | 2017-06-23 19:02 | PC.NURSE ---
Report given to Josué Wells RN
[2017-06-24] VITALS (11 sets, daily range): BP systolic 114–152; BP diastolic 66–91; PULSE 78–100; RESP 16–26; TEMP 36.6–36.9; O2SAT 90–96
--- NOTE | 2017-06-24 04:18 | PC.NURSE ---
PT RESTED WELL THROUGHOUT NIGHT. SHALLOW BREATHING NOTED, ENCOURAGED PT TO USE PILLOW TO SPLINT ABDOMEN WITH MOVEMENT, COUGHING AND TO DEEP BREATH. EDUCATED PT ON USE OF INCENTIVE SPIROMETER AND IMPORTANCE OF DEEP BREATHING. ENCOURAGED TO USE INCENTIVE HOURLY WHILE AWAKE. CONTINUES TO SHALLOW BREATH. BREATH SOUNDS ARE DIMINISHED IN BASES WITH FAINT CRACKLES NOTED INTERMITTENTLY THROUGHOUT. REMAINS ON 02 @ 1L NC, UNABLE TO WEAN AT THIS TIME. PT HAS 5 SMALL ABDOMINAL INCISIONS, COVERED WITH STERI STRIPS FROM RECENT HERNIA REPAIR. NO S/S OF INFECTION NOTED, SURROUNDING SKIN INTACT WITH NO REDNESS OR EDEMA NOTED. NO NEW DRAINAGE NOTED. SCANT AMOUNT OF DRIED DRAINAGE NOTED ON STERI STRIPS, DRY AND INTACT. PT EDUCATED ON POC, MEDICATIONS, PAIN AND INTERVENTIONS, INCENTIVE SPIROMETER, TCDB, SPLINTING FOR PAIN REDUCTION, SAFETY, AND CALL LIGHT. LYING IN BED WITH EYES CLOSED RESTING, CALL LIGHT WITHIN REACH.
--- NOTE | 2017-06-24 07:14 | PC.NURSE ---
REPORT GIVEN TO Tory MAYS W/C
--- NOTE | 2017-06-24 07:16 | PC.NURSE ---
AT 0645 THIS RN ATTEMPTED TO WEAN OXYGEN TO RA, WITHIN 5-10 MIN OF WEANING PT O2SATS DROPPED TO 87% 1LNC REAPPLIED, O2SATS REMAINED >90% ON 1LNC FOLLOWING REAPPLICATION.
--- NOTE | 2017-06-24 07:27 | PC.NURSE ---
HANDOFF REPORT GIVEN TO Abbey MURRAY RN
--- NOTE | 2017-06-24 08:22 | PC.NURSE ---
PATIENT AMBULATED WITH THIS NURSE IN HALLWAY WITH NO O2. WHEN RETURNING TO ROOM O2 SAT WAS CHECKED AND PATIENT WAS 80% ON RA. PLACED PATIENT BACK ON 0.5L O2 AND SHE STEADILY WENT UP TO 88% IN 2 MINUTES AND WAS 93% IN 5 MINUTES.
--- NOTE | 2017-06-24 08:29 | HMH.GSPN ---
Subjective Patient reports: no new complaints (with the exception of mild concern regarding constipation), no bowel movement Exam Vital signs and Labs for Last 24 Hours: Temp Pulse Resp BP Pulse Ox 98.0 F 87 16 151/91 95 06/24/17 07:34 06/24/17 07:34 06/24/17 07:34 06/24/17 07:34 06/24/17 08:10 I & O for Last 24 hours: Intake & Output 06/21/17 06/22/17 06/23/17 06/24/17 11:59 11:59 11:59 11:59 Intake Total 881 / 881 840 / 840 1210 / 1210 1450 / 1450 Output Total 300 / 300 Balance 881 / 881 540 / 540 1210 / 1210 1450 / 1450 Weight 141 lb 8 oz 144 lb 3 oz 144 lb 2.988 oz Microbiology Reports for the Last 24 Hours: Microbiology 06/23/17 14:36 Sputum - Expectorated Sputum Gram Stain - Final 06/23/17 14:36 Sputum - Expectorated Sputum Sputum Culture - Preliminary Gram Positive Cocci Narrative: placed on Rocephin and Zithromax yesterday due to possible LLL infiltrate - Constitutional no acute distress - *Routine Respiratory Exam Absent: respiratory distress Comments: on 1/2 L at this time - *Routine Abdominal Exam Present: soft Comments: incision c/d/i Progress Note: A&P (1) S/P laparoscopic hernia repair Status: Acute Assessment and plan: Overall, doing well post-op ileus/constipation Colace/Fleets Current Visit: Yes (2) Hypoxia Status: Acute Assessment and plan: continuing to slowly wean Current Visit: Yes (3) LLL pneumonia Status: Acute Assessment and plan: as per PCP Current Visit: Yes
--- NOTE | 2017-06-24 10:10 | HMH.ACPN2 ---
Internal Medicine - PN: Subj *Date: 06/24/17 *Time: 10:10 Interval history: Patient with no new complaints today. Nursing notes reviewed. Patient has been up and walked in hassan with assistance. Exam Vital signs and Labs for Last 24 Hours: Temp Pulse Resp BP Pulse Ox 98.0 F 80 16 151/91 95 06/24/17 07:34 06/24/17 08:00 06/24/17 07:34 06/24/17 07:34 06/24/17 08:10 Vital Signs Temp Pulse Pulse Resp BP Pulse Ox 06/24/17 08:10 95 06/24/17 08:00 80 94 L 06/24/17 07:34 98.0 F 87 16 151/91 96 06/24/17 07:22 93 L 06/24/17 06:46 90 L 06/24/17 04:00 97.9 F 100 H 90 26 H 141/77 91 L 06/24/17 03:10 92 L 06/24/17 00:00 98.4 F 90 84 24 152/80 93 L 06/23/17 20:00 80 92 L 06/23/17 19:50 97.3 F L 82 26 H 153/77 95 06/23/17 16:00 90 06/23/17 15:46 98.7 F 81 18 135/83 95 06/23/17 12:00 80 Intake and Output 06/23/17 06/24/17 06/24/17 19:59 03:59 11:59 Intake Total 960 / 960 490 / 490 Balance 960 / 960 490 / 490 Intake: Intake, Oral Amount 960 / 960 480 / 480 Intake, Other Amount 10 / 10 Other: Number of Voids 4 Number of Unmeasured Voids 4 3 Number of Urine Attends/Diapers 2 Number of Bowel Movements 0 I & O for Last 24 hours: Intake & Output 06/21/17 06/22/17 06/23/17 06/24/17 11:59 11:59 11:59 11:59 Intake Total 881 / 881 840 / 840 1210 / 1210 1450 / 1450 Output Total 300 / 300 Balance 881 / 881 540 / 540 1210 / 1210 1450 / 1450 Weight 141 lb 8 oz 144 lb 3 oz 144 lb 2.988 oz Microbiology Reports for the Last 24 Hours: Microbiology 03/03/18 14:36 Sputum - Expectorated Sputum Gram Stain - Final 06/23/17 14:36 Sputum - Expectorated Sputum Sputum Culture - Preliminary Gram Positive Cocci - Constitutional no acute distress (conversant) - *Routine HEENT Exam ENT: Present: mucous membranes moist - *Routine Cardiovascular Exam Present: RRR - *Routine Extremities Exam Absent: cyanosis, clubbing, edema Assessment and Plan (1) S/P laparoscopic hernia repair Current visit: Yes Status: Acute Category: Surgical Code(s): Z98.890 - Other specified postprocedural states; Z87.19 - Personal history of other diseases of the digestive system (2) Hypoxia Current visit: Yes Status: Acute Category: Medical Code(s): R09.02 - Hypoxemia (3) LLL pneumonia Current visit: Yes Status: Acute Category: Medical Code(s): J18.1 - Lobar pneumonia, unspecified organism (4) HTN (hypertension) Current visit: Yes Status: Chronic Category: Medical Code(s): I10 - Essential (primary) hypertension - Assessment and plan all Dx Assessment and Plan for all problems:: Antibiotics started yesterday for possible pneumonia. 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 Will recheck CXR and labs tomorrow morning. Patient continues slow improvement.
--- NOTE | 2017-06-24 18:59 | PC.NURSE ---
REPORT BEING GIVEN TO MORRIS NXI RN
[2017-06-25] VITALS (11 sets, daily range): BP systolic 136–161; BP diastolic 68–84; PULSE 80–100; RESP 18–20; TEMP 36.7–37.1; O2SAT 86–95
--- NOTE | 2017-06-25 04:46 | PC.NURSE ---
PT RESTED WELL THROUGHOUT NIGHT. BREATH SOUNDS DIMINISHED PING AND LLL, FINE CRACKLES RUL, RML, RLL. ENCOURAGED PT TO USE PILLOW TO SPLINT ABDOMEN WITH MOVEMENT, COUGHING AND TO DEEP BREATH. PT REPORTS INTERMITTENT COUGH WITH GREEN SPUTUM PRODUCED. ENCOURAGED PT TO USE INCENTIVE SPIROMETER AND EXPRESSED IMPORTANCE OF DEEP BREATHING. PT DID MUCH BETTER WITH INCENTIVE SPIROMETER AND WAS ABLE TO REACH 1250ML X 2 ON INCENTIVE. EDUCATED PT ON HOURLY USE WHILE AWAKE. REMAINS ON 02 @ 1L NC. PT HAS 5 SMALL ABDOMINAL INCISIONS. NO S/S OF INFECTION, SURROUNDING SKIN INTACT WITH NO REDNESS OR EDEMA NOTED. NO NEW DRAINAGE. SCANT AMOUNT OF DRIED DRAINAGE NOTED ON STERI STRIPS WHICH ARE DRY AND INTACT. NO REDNESS OR EDEMA NOTED AROUND IV SITE, DRG DRY AND INTACT. PT EDUCATED ON POC, MEDICATIONS, PAIN AND INTERVENTIONS, INCENTIVE SPIROMETER, TCDB, SPLINTING FOR PAIN REDUCTION, PAIN AND INTERVENTIONS, SAFETY, AND CALL LIGHT. LYING IN BED WITH EYES CLOSED RESTING, CALL LIGHT WITHIN REACH.
[2017-06-25 05:28] LABS: Basophils # 0.1 K/mm3 (0-0.2); Basophils % 0.6 % (0.1-2.0); Eosinophils # 0.4 K/mm3 (0.0-0.4); Eosinophils % 4.3 % (0.1-12.0); Hemoglobin 9.5 g/dL (12.2-16.2); Lymphocytes # 1.6 K/mm3 (0.7-4.5); Mean Corpuscular HGB Conc 30.5 g/dL (31.8-35.4); Mean Corpuscular Hemoglobin 27.5 pg (27.0-31.2); Mean Corpuscular Volume 90.3 fl (81-99); Mean Platelet Volume 7.4 fl (7.4-10.4); Monocytes # 0.8 K/mm3 (0.1-1.0); Monocytes % 9.9 % (1.7-9.3); Neutrophils # 5.3 K/mm3 (1.8-7.8); Neutrophils % 65.2 % (37.0-80.0); Platelet Count 362 K/mm3 (142-424); Red Blood Count 3.44 M/mm3 (4.20-5.40); Red Cell Distribution Width 14.4 % (11.5-17.5); White Blood Count 8.1 K/mm3 (4.8-10.8)
[2017-06-25 05:29] LABS: Anion Gap 11.2 mEq/L (5-15); Blood Urea Nitrogen 31 mg/dL (7-18); Carbon Dioxide 29 mmol/L (21.0-32.0); Chloride 102 mmol/L (98-107); Creatinine Clearance Estimated 25 mL/min (0-300); Creatinine,Serum 1.81 mg/dL (0.55-1.02); Estimated Glomerular Filt Rate 27 ml/min (>60); GFR (African American) 32 ML/MIN (>60); Glucose 103 mg/dL (74-106); Potassium 4.2 mmoL/L (3.5-5.1); Sodium 138 mmol/L (136-145)
--- NOTE | 2017-06-25 07:10 | PC.NURSE ---
RESPONDED AT THIS TIME. MD NOTIFIED OF MRSA DETECTED IN SPUTUM SAMPLE AND SENSITIVITIES SHOWED PT IS NOT ORDERED THE ANTIBIOTICS THAT ARE SENSITIVE TO MRSA. CONTACT PRECAUTIONS PLACED AT THIS TIME.
--- NOTE | 2017-06-25 07:24 | PC.NURSE ---
HANDOFF REPORT GIVEN TO Abbey MURRAY RN
--- NOTE | 2017-06-25 07:30 | XR_ITS ---
XR chest 2V HISTORY: ITS.REASON: hypoxia ORDERING PHYSICIAN: Juvenal Rutledge MD PATIENT AGE: 82 years COMPARISON: 06/23/2017 FINDINGS: There is continued dense consolidation within the left lower lobe with superimposed patchy density in the left perihilar region. Right lung is clear. There is thoracic and lumbar scoliosis with kyphosis. IMPRESSION: Continued dense consolidation/pneumonia in the left lower lobe with patchy infiltrate in the left perihilar region. The perihilar infiltrate may be slightly worse
--- NOTE | 2017-06-25 07:31 | PC.NURSE ---
REPORT GIVEN TO Penny AVALOS W/C
--- NOTE | 2017-06-25 08:10 | P.PN_ITS ---
Subjective Patient reports: feels better Narrative: Patient states that she feels much better. Tolerating diet without difficulty. No Nausea. Ambulating. Coughing up sputum. Still on 1L per NC. Exam Vital signs and Labs for Last 24 Hours: Temp Pulse Resp BP Pulse Ox 98.5 F 84 20 161/68 94 L 06/25/17 07:37 06/25/17 07:37 06/25/17 07:37 06/25/17 07:37 06/25/17 07:37 Laboratory Results - last 24 hr 06/25/17 05:05: WBC 8.1 D, RBC 3.44 L, Hgb 9.5 L, Hct 31.0 L, MCV 90.3, MCH 27.5, MCHC 30.5 L, RDW 14.4, Plt Count 362, MPV 7.4, Neut % (Auto) 65.2, Lymph % (Auto) 20.0, Coleman % (Auto) 9.9 H, Eos % (Auto) 4.3, Baso % (Auto) 0.6, Neut # (Auto) 5.3, Lymph # (Auto) 1.6, Coleman # (Auto) 0.8, Eos # (Auto) 0.4, Baso # ( Auto) 0.1 06/25/17 05:05: Sodium 138, Potassium 4.2, Chloride 102, Carbon Dioxide 29, Anion Gap 11.2, BUN 31 H, Creatinine 1.81 H, Estimated Creat Clear 25, Estimated GFR 27 L, Est GFR ( Amer) 32 L, Glucose 103 I & O for Last 24 hours: Intake & Output 06/22/17 06/23/17 06/24/17 06/25/17 11:59 11:59 11:59 11:59 Intake Total 840 / 840 1210 / 1210 1450 / 1450 250 / 250 Output Total 300 / 300 Balance 540 / 540 1210 / 1210 1450 / 1450 250 / 250 Weight 144 lb 3 oz 144 lb 2.988 oz Microbiology Reports for the Last 24 Hours: Microbiology 06/23/17 14:36 Sputum - Expectorated Sputum Gram Stain - Final 06/23/17 14:36 Sputum - Expectorated Sputum Sputum Culture - Final Staphylococcus aureus - *Routine Abdominal Exam Present: soft Comments: Hypoactive Bowel Sounds. Progress Note: A&P (1) Nausea after anesthesia Status: Resolved Assessment and plan: Will advance diet. Discharge home when pulmonary issues stable. Current Visit: Yes (2) S/P laparoscopic hernia repair Status: Acute Current Visit: Yes (3) HTN (hypertension) Status: Chronic Current Visit: Yes (4) Acute respiratory acidosis Status: Acute Current Visit: Yes
--- NOTE | 2017-06-25 08:48 | P.PN_ITS ---
Internal Medicine - PN: Subj *Date: 06/25/17 *Time: 08:45 Interval history: Patient with no new complaints today, still with some cough. Exam Vital signs and Labs for Last 24 Hours: Temp Pulse Resp BP Pulse Ox 98.5 F 84 20 161/68 94 L 06/25/17 07:37 06/25/17 07:37 06/25/17 07:37 06/25/17 07:37 06/25/17 07:37 Laboratory Results - last 24 hr 06/25/17 05:05: WBC 8.1 D, RBC 3.44 L, Hgb 9.5 L, Hct 31.0 L, MCV 90.3, MCH 27.5, MCHC 30.5 L, RDW 14.4, Plt Count 362, MPV 7.4, Neut % (Auto) 65.2, Lymph % (Auto) 20.0, Bibb % (Auto) 9.9 H, Eos % (Auto) 4.3, Baso % (Auto) 0.6, Neut # (Auto) 5.3, Lymph # (Auto) 1.6, Bibb # (Auto) 0.8, Eos # (Auto) 0.4, Baso # ( Auto) 0.1 06/25/17 05:05: Sodium 138, Potassium 4.2, Chloride 102, Carbon Dioxide 29, Anion Gap 11.2, BUN 31 H, Creatinine 1.81 H, Estimated Creat Clear 25, Estimated GFR 27 L, Est GFR ( Amer) 32 L, Glucose 103 Vital Signs Temp Pulse Resp BP Pulse Ox 06/25/17 07:37 98.5 F 84 20 161/68 94 L 06/25/17 03:39 98.6 F 81 20 140/75 93 L 06/25/17 03:09 93 L 06/25/17 00:00 98.7 F 86 20 136/76 95 06/24/17 20:00 93 L 06/24/17 19:36 98.0 F 86 20 114/66 93 L 06/24/17 16:00 98.0 F 78 18 137/71 91 L Intake and Output 06/24/17 06/25/17 06/25/17 19:59 03:59 11:59 Intake Total 240 / 240 Balance 240 / 240 Intake: Intake, Oral Amount 240 / 240 Intake, Other Amount 10 / 10 Other: Number of Unmeasured Voids 1 I & O for Last 24 hours: Intake & Output 06/22/17 06/23/17 06/24/17 06/25/17 11:59 11:59 11:59 11:59 Intake Total 840 / 840 1210 / 1210 1450 / 1450 250 / 250 Output Total 300 / 300 Balance 540 / 540 1210 / 1210 1450 / 1450 250 / 250 Weight 144 lb 3 oz 144 lb 2.988 oz Microbiology Reports for the Last 24 Hours: Microbiology 06/23/17 14:36 Sputum - Expectorated Sputum Gram Stain - Final 06/23/17 14:36 Sputum - Expectorated Sputum Sputum Culture - Final Staphylococcus aureus - Constitutional no acute distress - *Routine HEENT Exam ENT: Present: mucous membranes moist - *Routine Respiratory Exam Comments: Bibasilar crackles, no wheezes, good air movement - *Routine Cardiovascular Exam Present: RRR - *Routine Extremities Exam Absent: edema Assessment and Plan (1) S/P laparoscopic hernia repair Current visit: Yes Status: Acute Category: Surgical Code(s): Z98.890 - Other specified postprocedural states; Z87.19 - Personal history of other diseases of the digestive system (2) Hypoxia Current visit: Yes Status: Acute Category: Medical Code(s): R09.02 - Hypoxemia (3) LLL pneumonia Current visit: Yes Status: Acute Category: Medical Code(s): J18.1 - Lobar pneumonia, unspecified organism (4) HTN (hypertension) Current visit: Yes Status: Chronic Category: Medical Code(s): I10 - Essential (primary) hypertension - Assessment and plan all Dx Assessment and Plan for all problems:: WBC count normal today, repeat CXR pending, will give albuterol neb and attempt to wean O2.
--- NOTE | 2017-06-25 17:57 | DIET.NUTRFU ---
Pt on bland diet, po intakes avg 75-100%. s/p hernia surgery. Pt voices no complaints with meals and tolerating well. She is requesting a milkshake. Will provide a low fat shake one a day.
--- NOTE | 2017-06-25 18:00 | PC.NURSE ---
PATIENT IS SITTING ON SIDE OF BED EATING AND VISITING WITH FAMILY. SHE STATES THAT TODAY WAS A MUCH BETTER DAY. LUNG SOUNDS ARE DIMINISHED IN BILATERAL BASES. DENIES PAIN AT THIS TIME. PATIENT WAS UNABLE TO BE WEANED FROM 1LNC TODAY HER O2 SAT DROPS TO 86-87 ON ROOM AIR. CALL LIGHT WITHIN REACH WILL CONTINUE TO MONITOR
[2017-06-26] VITALS (9 sets, daily range): BP systolic 131–144; BP diastolic 67–78; PULSE 75–104; RESP 16–18; TEMP 36.6–37.3; O2SAT 91–97
--- NOTE | 2017-06-26 02:30 | PC.NURSE ---
Patient laying in bed resting at this time. Denies any pain or soa. States abdomen is tender but no pain. Positive bowel sounds x 4 quads. States has not had a BM since 06-20. Has had2 stool softeners without results. Gave patient warm prune juice to sip on per patient request. Will notify this a.m for something stronger. Lungs are clear, resp even and non labored. Encouraged to use IS for lung expansion. Iv is patent, [facility] has no needs at this time. Bed locked in low position, side rails up x 2. C all light within reach. Encouraged to notify RN of needs or pain. Verbalized understanding.
--- NOTE | 2017-06-26 07:52 | PC.NURSE ---
0715 - Report received from Stephanie Mejias RN
--- NOTE | 2017-06-26 08:54 | HMH.ACPN2 ---
Internal Medicine - PN: Subj *Date: 06/26/17 *Time: 08:54 Interval history: Patient feels better today, no new complaints, still has not had a bowel movement but is passing gas. Exam Vital signs and Labs for Last 24 Hours: Temp Pulse Resp BP Pulse Ox 98.1 F 86 18 131/75 95 06/26/17 07:41 06/26/17 07:41 06/26/17 07:41 06/26/17 07:41 06/26/17 07:41 Vital Signs Temp Pulse Pulse Resp BP Pulse Ox 06/26/17 07:41 98.1 F 86 18 131/75 95 06/26/17 06:06 77 92 L 06/26/17 04:00 98.2 F 98 H 18 142/78 91 L 06/25/17 22:00 99 H 06/25/17 20:06 98.1 F 100 H 18 161/84 91 L 06/25/17 19:24 87 L 06/25/17 15:38 100 H 20 148/74 93 L 06/25/17 13:29 91 H 91 L 06/25/17 09:56 81 91 L 06/25/17 09:20 86 L Intake and Output 06/25/17 06/26/17 06/26/17 19:59 03:59 11:59 Intake Total 1380 / 1380 240 / 240 Balance 1380 / 1380 240 / 240 Intake: Intake, Oral Amount 1080 / 1080 240 / 240 Intake, Total IV Amount 300 / 300 Azithromycin 500 mg In 0.9 % 250 / 250 Sodium Chloride 250 ml @ 250 mls/hr IV Q24H VY Rx#:[id number] Ceftriaxone Sodium 1 gm In 0.9 50 / 50 % Sodium Chloride 50 ml @ 100 mls/hr IV Q24H VY Rx#:[id number] Other: Number of Voids 4 Number of Unmeasured Voids 4 Number of Urine Attends/Diapers 3 I & O for Last 24 hours: Intake & Output 06/23/17 06/24/17 06/25/17 06/26/17 11:59 11:59 11:59 11:59 Intake Total 1210 / 1210 1450 / 1450 250 / 250 1620 / 1620 Balance 1210 / 1210 1450 / 1450 250 / 250 1620 / 1620 Weight 144 lb 2.988 oz Microbiology Reports for the Last 24 Hours: Microbiology 06/23/17 14:36 Sputum - Expectorated Sputum Gram Stain - Final 06/23/17 14:36 Sputum - Expectorated Sputum Sputum Culture - Final Staphylococcus aureus - Constitutional no acute distress - *Routine HEENT Exam ENT: Present: mucous membranes moist - *Routine Respiratory Exam Present: crackles (bibasilar). Absent: wheezes - *Routine Cardiovascular Exam Present: RRR - *Routine Extremities Exam Absent: cyanosis, clubbing, edema Assessment and Plan (1) S/P laparoscopic hernia repair Current visit: Yes Status: Acute Category: Surgical Code(s): Z98.890 - Other specified postprocedural states; Z87.19 - Personal history of other diseases of the digestive system (2) Hypoxia Current visit: Yes Status: Acute Category: Medical Code(s): R09.02 - Hypoxemia (3) LLL pneumonia Current visit: Yes Status: Acute Category: Medical Code(s): J18.1 - Lobar pneumonia, unspecified organism (4) HTN (hypertension) Current visit: Yes Status: Chronic Category: Medical Code(s): I10 - Essential (primary) hypertension (5) Constipation Current visit: Yes Status: Acute Category: Medical Code(s): K59.00 - Constipation, unspecified - Assessment and plan all Dx Assessment and Plan for all problems:: Patient is slowly improving, will ambulate in hassan today, arrange home oxygen.
--- NOTE | 2017-06-26 12:40 | HMH.GSPN ---
Subjective Patient reports: feels better, flatus, no bowel movement Narrative: Feeling better. Feels stronger. Tolerating bland diet without nausea. Concerned she has not had a bowel movement. Still requiring 1L per NC. Exam Vital signs and Labs for Last 24 Hours: Temp Pulse Resp BP Pulse Ox 98.1 F 88 18 131/75 91 L 06/26/17 07:41 06/26/17 09:57 06/26/17 07:41 06/26/17 07:41 06/26/17 09:57 I & O for Last 24 hours: Intake & Output 06/24/17 06/25/17 06/26/17 06/27/17 11:59 11:59 11:59 11:59 Intake Total 1450 / 1450 250 / 250 1620 / 1620 Balance 1450 / 1450 250 / 250 1620 / 1620 - *Routine Abdominal Exam Present: soft. Absent: tenderness Progress Note: A&P (1) Nausea after anesthesia Status: Resolved Current Visit: Yes (2) S/P laparoscopic hernia repair Status: Acute Assessment and plan: Advance to regular diet. Will give biscodyl suppository. DC planning Current Visit: Yes (3) HTN (hypertension) Status: Chronic Current Visit: Yes (4) Acute respiratory acidosis Status: Acute Current Visit: Yes
--- NOTE | 2017-06-26 14:29 | SW/DCPLANNER ---
Received referral regarding home o2 for this patient. Patient information was faxed to [facility] and I have spoke with Clari to confirm information was received. Clari has stated that someone will be up to deliver home O2 this afternoon.
--- NOTE | 2017-06-26 18:22 | PC.NURSE ---
Pt has been A&Ox3 this shift in NAD. VSS. Afebrile. Lungs /c crackles scattered. O2 @ 2LPM via NC in place to maintain O2 sats > 90%. (L) AC IV saline locked; no s/s of infiltration noted. Flushes easily /c good blood return. Abd scope sites C/D/I. Pt received biscadol suppository this shift with positive results; bowel sounds active x4 quads. Pt refused BLE GIO hose. Bed in low position. Call clark within reach. Will continue to monitor. O2 tank delivered to bedside this shift.
--- NOTE | 2017-06-26 19:21 | PC.NURSE ---
Report given to Stephanie Mejias RN
[2017-06-27] VITALS: BP 145/54; PULSE 68; RESP 18; O2SAT 98
--- NOTE | 2017-06-27 02:26 | PC.NURSE ---
Laying in bed resting at this time. Has rest well most of shift. Lungs are clear, resp even and nonlabored. Surgical incision shows no signs of infection. Patient is eating and drinking plenty, had a large bowel movement on previous shift. States she feels good and is ready to go home. IV is patent, no new changes. Bed locked in low position, side rails up x 2, call light within reach. Encouraged to call out if any needs.
[2017-06-27 04:00] VITALS: BP 128/73; PULSE 81; RESP 16; TEMP 36.6; O2SAT 94
[2017-06-27 05:51] VITALS: PULSE 80; PULSE 88; O2SAT 92
[2017-06-27 08:00] VITALS: BP 110/65; PULSE 89; RESP 18; TEMP 36.4; O2SAT 95
--- NOTE | 2017-06-27 08:15 | HMH.ACPN2 ---
<Janel Booth - Last Filed: 06/27/17 08:15> Internal Medicine - PN: Subj *Date: 06/27/17 *Time: 08:15 Interval history: Patient feeling better today. Still with a cough. Anxious to go home. Denies any pain. Exam Vital signs and Labs for Last 24 Hours: Temp Pulse Resp BP Pulse Ox 97.8 F 88 16 128/73 92 L 06/27/17 04:00 06/27/17 05:51 06/27/17 04:00 06/27/17 04:00 06/27/17 05:51 I & O for Last 24 hours: Intake & Output 06/24/17 06/25/17 06/26/17 06/27/17 11:59 11:59 11:59 11:59 Intake Total 1450 / 1450 250 / 250 1620 / 1620 480 / 480 Balance 1450 / 1450 250 / 250 1620 / 1620 480 / 480 - Constitutional no acute distress - *Routine Respiratory Exam Present: rales (bibasilar) - *Routine Cardiovascular Exam Present: RRR - *Routine Abdominal Exam Present: soft, normoactive bowel sounds, tenderness (only around incision sites) - *Routine Extremities Exam Absent: edema Assessment and Plan (1) S/P laparoscopic hernia repair Current visit: Yes Status: Acute Category: Surgical Code(s): Z98.890 - Other specified postprocedural states; Z87.19 - Personal history of other diseases of the digestive system (2) MRSA pneumonia Current visit: Yes Status: Acute Category: Medical Code(s): J15.212 - Pneumonia due to Methicillin resistant Staphylococcus aureus (3) Hypoxia Current visit: Yes Status: Acute Category: Medical Code(s): R09.02 - Hypoxemia (4) LLL pneumonia Current visit: Yes Status: Acute Category: Medical Code(s): J18.1 - Lobar pneumonia, unspecified organism (5) HTN (hypertension) Current visit: Yes Status: Chronic Category: Medical Code(s): I10 - Essential (primary) hypertension (6) Constipation Current visit: Yes Status: Acute Category: Medical Code(s): K59.00 - Constipation, unspecified - Assessment and plan all Dx Assessment and Plan for all problems:: Possible discharge home today on oxygen and antibiotics. Will discuss further care with Dr. Mccauley. <Delfin Mccauley - Last Filed: 06/27/17 08:31> Internal Medicine - PN: Subj *Date: 06/27/17 *Time: 08:30 Exam Vital signs and Labs for Last 24 Hours: Temp Pulse Resp BP Pulse Ox 97.8 F 88 16 128/73 92 L 06/27/17 04:00 06/27/17 05:51 06/27/17 04:00 06/27/17 04:00 06/27/17 05:51 I & O for Last 24 hours: Intake & Output 06/24/17 06/25/17 06/26/17 06/27/17 11:59 11:59 11:59 11:59 Intake Total 1450 / 1450 250 / 250 1620 / 1620 480 / 480 Balance 1450 / 1450 250 / 250 1620 / 1620 480 / 480 Assessment and Plan (1) S/P laparoscopic hernia repair Current visit: Yes Status: Acute Category: Surgical Code(s): Z98.890 - Other specified postprocedural states; Z87.19 - Personal history of other diseases of the digestive system (2) MRSA pneumonia Current visit: Yes Status: Acute Category: Medical Code(s): J15.212 - Pneumonia due to Methicillin resistant Staphylococcus aureus (3) Hypoxia Current visit: Yes Status: Acute Category: Medical Code(s): R09.02 - Hypoxemia (4) LLL pneumonia Current visit: Yes Status: Acute Category: Medical Code(s): J18.1 - Lobar pneumonia, unspecified organism (5) HTN (hypertension) Current visit: Yes Status: Chronic Category: Medical Code(s): I10 - Essential (primary) hypertension (6) Constipation Current visit: Yes Status: Acute Category: Medical Code(s): K59.00 - Constipation, unspecified - Assessment and plan all Dx Assessment and Plan for all problems:: Saw patient, agree with above note. Discharge home today, f/u in office in 6 days with me, f/u with Dr. Rutledge in 2 weeks.
[2017-06-27 09:10] VITALS: PULSE 89; RESP 18; O2SAT 95
[2017-06-27 09:52] VITALS: PULSE 84
--- NOTE | 2017-06-27 12:11 | PC.NURSE ---
PT IS DISCHARGED AND WAITING FOR A RIDE, WAS TOLD I DID NOT NEED TO PERFORM 1200 VITALS BECAUSE SHE IS DISCHARGED.
--- NOTE | 2017-06-27 12:12 | PC.NURSE ---
PT WAS DISCHARGED BEFORE LUNCH ARRIVED, DID NOT CHART LUNCH MEAL INTAKE. WAS TOLD 1200 VITALS DO NOT NEED TO BE PERFORMED, BECAUSE THE PT IS DISCHARGED, PT IS WAITING FOR A RIDE HOME. PT INDEPENDENT AND TOILETS BY HERSELF. Lio GARCIA SRNA
== END 2017-06-27 11:56 | disposition home or self-care (01) | DRG 353 ==
LOC: 2ND 06-21 07:13
PROVIDERS: Admitting Provider Surgery; Family Provider Family Medicine; PCP Family Medicine; Visit Provider Surgery
PROC: 0WQF4ZZ Repair Abdominal Wall, Percutaneous Endoscopic Approach (ICD-10-PCS; principal; 2017-06-20 08:45)
DX: J15.212 Pneumonia due to Methicillin resistant Staphylococcus aureus (principal); K43.2 Incisional hernia without obstruction or gangrene; E87.2 Acidosis; K43.0 Incisional hernia with obstruction, without gangrene; I10 Essential (primary) hypertension; Z85.038 Personal history of other malignant neoplasm of large intestine; T88.59XA Other complications of anesthesia, initial encounter; R11.0 Nausea
CPT/HCPCS: 49654; 36415; 71046; 80048; 80074; 81001; 82803; 85025; 87070; 87077; 87186; 87205; 94640; 94660; 94761; 96374; 97162; C1781; G0378; J0131; J0456; J2270; J2405; J2710

== ENCOUNTER → 2017-11-30 12:57 | Outpatient (CLI) | payer MEDICARE, SELFPAY ==
--- NOTE | 2017-11-30 13:09 | XR_ITS ---
XR chest 2V HISTORY: ITS.REASON: MRSA PNEUMONIA, ORDERING PHYSICIAN: Semaj Ellis PATIENT AGE: 82 years COMPARISON: 06/25/2017, 02/05/2017 FINDINGS: Normal heart size. 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 There is increased density in the left midlung consistent with superimposed pneumonia. The previously noted consolidation in the left lower lobe has shown improvement. Thoracic scoliosis convex right with kyphosis. There is patchy infiltrate in the right upper lobe as well. IMPRESSION: Pulmonary fibrosis with superimposed pneumonia in the right upper lobe and left midlung
== END ==
PROVIDERS: PCP Family Medicine; Visit Provider Internal Medicine Infectious Disease
DX: J15.212 Pneumonia due to Methicillin resistant Staphylococcus aureus (principal); J15.1 Pneumonia due to Pseudomonas; Z16.29 Resistance to other single specified antibiotic; Z88.0 Allergy status to penicillin; Z88.1 Allergy status to other antibiotic agents; Z88.2 Allergy status to sulfonamides
CPT/HCPCS: 71046

== ENCOUNTER → 2018-04-03 12:35 | Outpatient (CLI) | payer MEDICARE, SELFPAY ==
--- NOTE | 2018-04-03 12:39 | CI_ITS ---
Cerebrovascular Exam Indications: Follow-up carotid 433.10. IMPRESSIONS 1. The bilateral vertebral arteries are patent with normal antegrade flow. 2. Study suggests 70-99% stenosis involving the right internal carotid artery. Disease progression from the study of 26-Oct-2014. 3. Study suggests 20-49% stenosis involving the left internal carotid artery. No change from the study of 26-Oct-2014. History: Risk factors: Hypertension. Carotid duplex study. Complete study and Doppler flow study including spectral analysis, color and hill scale imaging. Height: Height: 162.6cm. Height: 64in. Weight: Weight: 61.2kg. Weight: 134.7lb. Body mass index: BMI: 23.2kg/m^2. Body surface area: BSA: 1.67m^2. Location: Vascular laboratory. Patient status: Outpatient. Tables: Arterial flow: + +--------+--------+ Location V sys V ed + +--------+--------+ Right CCA - proximal 50.3cm/s 11.8cm/s + +--------+--------+ Right CCA - distal 51.1cm/s 16.5cm/s + +--------+--------+ Right ECA 73.9cm/s 8.6cm/s + +--------+--------+ Right ICA - proximal 213cm/s 54cm/s + +--------+--------+ Right ICA - mid 202cm/s 54cm/s + +--------+--------+ Right ICA - distal 183cm/s 46.2cm/s + +--------+--------+ Right vertebral 63.8cm/s 15.7cm/s + +--------+--------+ Left CCA - proximal 61.9cm/s 18.7cm/s + +--------+--------+ Left CCA - distal 54.7cm/s 13.8cm/s + +--------+--------+ Left ECA 91.8cm/s 12.6cm/s + +--------+--------+ Left ICA - proximal 59.1cm/s 18.2cm/s + +--------+--------+ Left ICA - mid 79.2cm/s 24.5cm/s + +--------+--------+ Left ICA - distal 91.1cm/s 32.7cm/s + +--------+--------+ Left vertebral 58.5cm/s 13.2cm/s + +--------+--------+ Velocity ratios: + + + + + + Right, V sys Right, V ed Left, V sys Left, V ed + + + + + + Max ICA/dist CCA 4.17 3.27 1.67 2.37 + + + + + + (Report amended ) Electronically signed by: Ezekiel Angelo [id number]
== END ==
PROVIDERS: PCP Family Medicine; Visit Provider Family Medicine
DX: R93.89 Abnormal findings on diagnostic imaging of other specified body structures (principal)
CPT/HCPCS: 93880

== ENCOUNTER 2018-04-26 09:55 | Outpatient (CLI) | payer MEDICARE, SELFPAY ==
[2018-04-26 10:20] VITALS: BP 125/71; PULSE 67; RESP 18
[2018-04-26 10:50] VITALS: BP 131/77; PULSE 65; RESP 18
== END 2018-04-26 11:05 | disposition home or self-care (01) ==
LOC: INF 10:02
PROVIDERS: Visit Provider Family Medicine
DX: D50.9 Iron deficiency anemia, unspecified (principal); N18.3 Chronic kidney disease, stage 3 (moderate)
CPT/HCPCS: 96365; J1439

== ENCOUNTER → 2018-05-01 12:33 | Outpatient (CLI) | payer MEDICARE, SELFPAY ==
[2018-05-01 12:36] LABS: Microscopic, Urine URINE MICROSCOPIC (MICROSCOPIC)
[2018-05-01 13:21] LABS: Appearance,Urine SL CLOUDY (Clear); Bilirubin,Urine Negative (Negative); Blood, Urine 1+ (Negative); Color,Urine YELLOW (Yellow); Glucose,Urine (UA) Negative (Negative); Ketones,Urine Negative (Negative); Leukocyte Esterase,Urine 3+ (Negative); Nitrate,Urine Negative (Negative); Protein,Urine 1+ (Negative); Urobilinogen,Urine 0.2 EU/dl (0.2)
[2018-05-01 13:46] LABS: WBC,Urine 50-100 #/hpf (0-3)
[2018-05-01 13:47] LABS: Bacteria,Urine 1+ /lpf; RBC,Urine Occasional #/hpf (0-3); Squamous Epithelial Cell,Urine Occasional #/hpf (0-5)
== END ==
PROVIDERS: Visit Provider Family Medicine
DX: R30.0 Dysuria (principal)
CPT/HCPCS: 81001; 87086; 87088; 87186

== ENCOUNTER 2018-05-03 09:43 | Outpatient (CLI) | payer MEDICARE, SELFPAY ==
[2018-05-03 10:05] VITALS: BP 126/69; PULSE 76; RESP 18; TEMP 36.6; O2SAT 98
[2018-05-03 10:20] VITALS: BP 125/69; PULSE 72; RESP 16; TEMP 36.6; O2SAT 97
[2018-05-03 10:40] VITALS: BP 132/76; PULSE 70; RESP 20
[2018-05-03 10:55] VITALS: BP 124/75; PULSE 74; RESP 18; TEMP 36.6; O2SAT 98
== END 2018-05-03 11:00 | disposition home or self-care (01) ==
LOC: INF 09:43
PROVIDERS: Visit Provider Family Medicine
DX: D50.9 Iron deficiency anemia, unspecified (principal); N18.3 Chronic kidney disease, stage 3 (moderate)
CPT/HCPCS: 96365; J1439

== ENCOUNTER → 2018-07-12 15:21 | Outpatient (CLI) | payer MEDICARE, SELFPAY ==
--- NOTE | 2018-07-12 15:42 | XR_ITS ---
XR chest 2V HISTORY: ITS.REASON: CRACKLES AT BOTH LUNG BASES ORDERING PHYSICIAN: CEE Bhat PATIENT AGE: 83 years COMPARISON: 11/30/2017 FINDINGS: The cardiomediastinal silhouette and pulmonary vascularity are within normal limits. Opacification is present in the left lower lobe consistent with pneumonia which is worse when compared to the older exam of 11/30/2017. Chronic changes are present on the right. There is mild to moderate mid thoracic scoliosis convex right and thoracic kyphosis. Coronary artery calcifications are noted. There is some erosion involving the distal aspect of the acromion on the right IMPRESSION: Left lower lobe pneumonia with chronic changes. Erosive change involving the right acromion
== END ==
PROVIDERS: PCP Physician Assistant; Visit Provider Physician Assistant
DX: R09.89 Other specified symptoms and signs involving the circulatory and respiratory systems (principal)
CPT/HCPCS: 71046; 87070; 87077; 87186; 87205

== ENCOUNTER → 2018-07-18 14:21 | Outpatient (CLI) | payer MEDICARE, SELFPAY ==
--- NOTE | 2018-07-18 14:26 | XR_ITS ---
XR shoulder RT min 2V HISTORY: Possible erosion right acromium ITS.REASON: ABNORMAL X-RAY ORDERING PHYSICIAN: Delfin Mccauley MD PATIENT AGE: 83 years Comparison: 07/12/2018 FINDINGS: There are mild hypertrophic changes of the acromion on the right with a defect along the superior aspect of the distal acromium which could be due to old injury. No definite acute erosive changes are evident. This appears represent a chronic finding. IMPRESSION: 1. 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 No acute erosion of the acromion evident. There is a defect along the superior aspect of the acromium distally which appears to be chronic
--- NOTE | 2018-07-18 14:26 | XR_ITS ---
XR chest 2V HISTORY: Follow-up pneumonia ITS.REASON: PNEUMONIA ORDERING PHYSICIAN: Delfin Mccauley MD PATIENT AGE: 83 years COMPARISON: 07/16/2018 FINDINGS: Unremarkable cardiovascular structures. Previously noted pneumonia in the left upper and left lower lobe and right upper lobe is once again noted but has shown some improvement. There remains some nodularity in the left mid lung. Continued follow-up suggested. There is thoracic kyphosis. Chronic interstitial changes are also noted. IMPRESSION: Improving bilateral pneumonia with some persistent nodularity in the left midlung laterally
== END ==
PROVIDERS: PCP Family Medicine; Visit Provider Family Medicine
DX: J18.1 Lobar pneumonia, unspecified organism (principal); R93.7 Abnormal findings on diagnostic imaging of other parts of musculoskeletal system
CPT/HCPCS: 71046; 73030

== ENCOUNTER → 2018-07-31 14:04 | Outpatient (CLI) | payer MEDICARE, SELFPAY ==
--- NOTE | 2018-07-31 14:08 | XR_ITS ---
XR chest 2V HISTORY: ITS.REASON: PNEUMONIA ORDERING PHYSICIAN: Delfin Mccauley MD PATIENT AGE: 83 years COMPARISON: 07/18/2018 FINDINGS: The cardiomediastinal silhouette and pulmonary vascularity are within normal limits. Chronic interstitial changes with persistent left upper and lower lobe pneumonia once again noted. There is some nodularity in the right CP angle nonspecific. Thoracic scoliosis convex right with kyphosis. IMPRESSION: No change left upper and left lower lobe pneumonia with chronic changes
== END ==
PROVIDERS: PCP Family Medicine; Visit Provider Family Medicine
DX: J18.1 Lobar pneumonia, unspecified organism (principal)
CPT/HCPCS: 71046

== ENCOUNTER → 2018-08-12 09:54 | Outpatient (CLI) | payer MEDICARE, SELFPAY ==
--- NOTE | 2018-08-12 10:01 | XR_ITS ---
XR chest 2V HISTORY: ITS.REASON: PNEUMONIA OF LEFT LOWER LOBE DUE TO INFECTIOUS ORGANISM ORDERING PHYSICIAN: Delfin Mccauley MD PATIENT AGE: 83 years Technique: PA and lateral chest COMPARISON: PA and lateral chest 320 12/09 and 07/16/2018. Also 06/25/2017 FINDINGS: progressive improvement at the left lung base since 07/18/2018 . The infiltrate seen at the retrocardiac region which partially obscure the left hemidiaphragm has shown further improvement. Minimal residualLLL infiltrate here improving but persists.. Also minimal along the lateral aspect of the left midlung of persist. Subtle blunting left CP angle persists. Right lung. There is subtle additional infiltrate just above the right hemidiaphragm towards right CP angle. Equivocal barely evident but I believe slightly more pronounced features here. The chronic interstitial changes and interstitial thickening bilaterally again noted. This subtle 12 mm area of low-density subtle nodularity at the anterior first interspace on left again noted similar to prior study but less evident.... Warrants ongoing follow-up Dextroscoliosis and kyphosis T-spine again noted. IMPRESSION 1. Improvement left lung infiltrate at the left lung base and along peripherally the left midlung persists but have show further improvement since 07/18/2018, & 07/16/2018. 2.. Suggestion Minimal subtle patchy infiltrate/atelectasis right lung base slightly more evident today toward CP angle /RLL 3. Chronic changes and chronic interstitial changes bilaterally. Above findings Warrants ongoing follow-up
== END ==
PROVIDERS: PCP Family Medicine; Visit Provider Family Medicine
DX: J18.1 Lobar pneumonia, unspecified organism (principal)
CPT/HCPCS: 71046

== ENCOUNTER → 2018-10-01 14:58 | Outpatient (POV) | payer MEDICARE, SELFPAY | PROVIDERS: Visit Provider Dermatology | DX: Z00.00 Encounter for general adult medical examination without abnormal findings (principal) ==

== ENCOUNTER 2019-01-07 04:20 | Observation (INO) ==
--- NOTE | 2019-01-07 04:50 | Emergency Department Note ---
ED Disposition Clinical Impression: Hemoptysis, Pulmonary nodules, COPD (chronic obstructive pulmonary disease), MRSA pneumonia Disposition: Admitted as Observation Condition on Discharge: Fair Referrals: Delfin Mccauley MD [Primary Care Provider] - Time of Disposition: 05:53 - Critical Care Critical Care Time: No Attestation: On 01/07/19, the high probability of a clinically significant, sudden or life threatening deterioration of the following system(s) required my full and direct attention, intervention and personal management. The time I documented below is in addition to time spent performing reported procedures but includes the following listed in this critical care notation. Medical Decision Making - Medical Records Medical records reviewed: Yes: I reviewed the patient's medical records. - Martin Inquiry Pt receiving controlled substance: No Martin was queried for this patient: No Vital Signs: 01/07/19 04:30 Temperature 98.1 F Temperature Source Oral Pulse Rate [Right Radial] 84 Respiratory Rate 20 Blood Pressure [Right Arm] 135/94 H Blood Pressure Mean [Right Arm] 107 02 Sat by Pulse Oximetry 90 L Oxygen Delivery Method Room Air - Lab Data Lab results reviewed: Yes: I reviewed the patient's lab results. Lab Results 01/07/19 05:10: WBC 8.7, RBC 3.54 L, Hgb 10.7 L, Hct 33.4 L, MCV 94.2, MCH 30.1, MCHC 32.0, RDW 15.1, Plt Count 387, MPV 6.8 L, Neut % (Auto) 65.4, Lymph % (Auto) 20.6, [place] % (Auto) 7.6, Eos % (Auto) 5.7, Baso % (Auto) 0.8, Neut # (Auto) 5.7, Lymph # (Auto) 1.8, [place] # (Auto) 0.7, Eos # (Auto) 0.5 H, Baso # (Auto) 0.1 01/07/19 05:10: Sodium 138, Potassium 4.5, Chloride 104, Carbon Dioxide 25, Anion Gap 13.5, BUN 33 H, Creatinine 1.90 H, Estimated Creat Clear 20, Estimated GFR 25 L, Est GFR ( Amer) 31 L, Glucose 110 H, Calcium 8.3 L, Total Bilirubin 0.3, AST 52 H, ALT 50, Alkaline Phosphatase 80, Total Protein 8.6 H, Albumin 2.4 L, Globulin 6.2 H, Albumin/Globulin Ratio 0.4 L 01/07/19 05:10: Lactate 1.1 Result diagrams: 01/07/19 05:10 01/07/19 05:10 Orders (Tests/Meds): ED MEDICATIONS Generic Name Dose Route Start Last Admin Trade Name Freq PRN Reason Stop Dose Admin Sodium Chloride 3 ml 01/07/19 04:35 Sodium Chloride 3% 15ml Neb IH 02/06/19 04:34 ONCE PRN INDUCE SPUTUM COLLECTION ORDERS Category Date Time Status CT chest wo con Stat Cat Scan 01/07/19 04:44 Taken PT/PTT Stat Lab 01/07/19 05:10 Received Blood Culture Stat Micro 01/07/19 05:10 Received Sputum Culture & Gram Stain Stat Micro 01/07/19 04:35 Ordered - Physician Consults Physician Consulted: CONSTANTINE Time: 05:53 Reason -: Admission, Pt condition General Adult HPI - General Chief complaint: Upper Respiratory Infection Stated complaint: Spitting up blood Time Seen by Provider: 01/07/19 04:48 Mode of Arrival: Ambulatory Limitations: No Limitations Description of Symptoms (Recalled from ER Triage Doc. by RN): pt presents to ed with c/o productive cough with bloody sputum. - History of Present Illness HPI narrative: RECURRENT PNEUMONIA HISTORY, MRSA PROBLEMATIC PER PATIENT REPORT. ON GENTAMYCIN NEBS AT HOME. CARE THROUGH DR. DELVALLE , INFECTIOUS DISEASE IN [place]. ON REVIEW OF OLD RECORDS, PATIENT HAS GROWN OUT MRSA IN HER SPUTUM AT LEAST TWICE, 06/23/17 AND 05/01/18 - Related Data Home Medications Medication Instructions Recorded Confirmed aspirin 81 mg chewable tablet 81 mg PO DAILY 04/27/17 01/07/19 multivit with min-folic 1 tab PO DAILY each 04/30/17 01/07/19 acid-lutein 400 mcg-250 mcg chewable tablet pravastatin 40 mg tablet 40 mg PO HS 04/30/17 01/07/19 vitamin B complex tablet 1 tab PO DAILY 04/30/17 01/07/19 Metoprolol Succinate 100 mg PO HS 06/12/17 01/07/19 Ferrous Sulfate [Iron] 325 mg PO TID 06/21/17 01/07/19 Levothyroxine Sodium 75 mcg PO DAILY 06/21/17 01/07/19 [Levothyroxine 75mcg (0.075mg) Tab] Pantoprazole Sodium [Protonix 40mg 40 mg PO DAILY 06/21/17 01/07/19 tablet] Losartan Potassium 50 mg PO DAILY 04/26/18 01/07/19 Allergies Allergy/AdvReac Type Severity Reaction Status Date / Time levocetirizine [From Xyzal] Allergy Severe TONGUE Verified 08/26/18 09:07 SWELLS, DIZZINESS linezolid [From Zyvox] Allergy Severe TONGUE Verified 08/26/18 09:07 SWELLS Penicillins Allergy Intermediate I-HIVES Verified 08/26/18 09:07 tetracycline Allergy Intermediate TONGUE Verified 08/26/18 09:07 SWELLS ciprofloxacin [From Cipro] Allergy Mild DIZZINESS Verified 08/26/18 09:07 nitrofurantoin Allergy Mild DIZZINESS Verified 08/26/18 09:07 [From Macrobid] Sulfa (Sulfonamide Allergy Mild DIZZINESS Verified 08/26/18 09:07 Antibiotics) H History - Hepatitis A Screen Drug use history?: No High risk sexual behaviors?: No History of sexually transmitted infection?: No Currently employed?: No Childcare worker?: No Do you have indoor plumbing?: Yes Do you have electricity?: Yes Attestation statement:: This patient has been screened for Hepatitis A risk factors. I have reviewed the patient's past medical history: Yes Medical History: Reports:: Cancer (colon, breast), Gastroesophageal Reflux Disease(GERD), Hyperlipidemia, Hypertension, Renal Insufficiency Denies:: Diabetes Mellitus Type 1, Diabetes Mellitus Type 2, Internal Pacemaker, MRSA, Seizures Other Medical History: Reports: Anemia, Cataracts, Hypothyroidism. Denies: Blood Transfusion Reaction Comment: Colon Cancer, Breast Cancer Laterality Cases: Right: Breast Biopsy, Lumpectomy, Bilateral: Other Other Surgeries: Yes: Colon Resection, Hernia Repair, Other. No: Pacemaker Amputation: No Fractures: No - Social History Smoking Status: Former smoker Alcohol Intake: never Alcohol Intake Frequency:: holidays/special occasions only Substance Use Type: denies use Occupational Status: retired Housing: house Household Members: none Family Hx:: Heart Attack, Hyperlipidemia, Hypertension ROS Obtained: Yes All systems reviewed & no additional complaints - Constitutional Constitutional: Reports chills, Denies fever(s) - Eyes Eyes: Denies change in vision - ENT Ears, Nose, Mouth, and Throat: Denies facial pain, Denies sinus pain, Denies sinus pressure, Denies sore throat - Cardiovascular Cardiovascular: Denies chest pain, Denies chest pain at rest, Reports dyspnea, Reports dyspnea on exertion - Respiratory Respiratory: Yes chest congestion, Yes cough, Yes coughing up blood, Yes wheezing - Gastrointestinal Gastrointestingal: Denies: abdominal pain - Genitourinary Female Genitourinary: Reports dysuria, Reports urinary frequency - Musculoskeletal Musculoskeletal: Denies joint stiffness, Denies joint swelling, Denies muscle weakness - Integumentary/Breasts Skin/Breast: Denies dry skin, Denies redness - Neurologic Neurologic: Denies headache(s) - Hematologic/Lymphatic Henatologic/Lymphatic: Denies easy bleeding, Denies easy bruising Physical Exam - General General appearance: alert - Head Head exam: atraumatic, normocephalic, normal inspection - Eye Eye exam: Present: normal appearance, PERRL, EOMI - ENT ENT exam: Present: normal exam, normal oropharynx, mucous membranes moist, TM's normal bilaterally, normal external ear exam - Neck Neck exam: Present: normal inspection, full ROM, trachea midline. Absent: meningismus, lymphadenopathy - Chest Chest inspection: Present: normal inspection, symmetric chest wall rise. Absent: tenderness - Respiratory Respiratory exam: Present: normal lung sounds bilaterally. Absent: respiratory distress - Cardiovascular Cardiovascular exam: Present: regular rate, normal rhythm. Absent: JVD - Abdominal Exam Abdominal exam: Present: soft, normal bowel sounds. Absent: distention, tenderness, guarding - Extremities Exam Extremities exam: Present: normal inspection, full ROM, normal capillary refill. Absent: calf tenderness - Back Exam Back exam: Present: normal inspection. Absent: tenderness - Neurological Exam Neurological exam: Present: alert, oriented X3 - Psychiatric Psychiatric exam: Present: normal affect, normal mood - Skin Skin exam: Present: warm, dry, intact, normal color - Lymphatic Lymphatic Findings: no adenopathy
[2019-01-07 05:26] LABS: Basophils # 0.1 K/mm3 (0-0.2); Basophils % 0.8 % (0.1-2.0); Eosinophils # 0.5 K/mm3 (0.0-0.4); Eosinophils % 5.7 % (0.1-12.0); Hematocrit 33.4 % (37.0-47.0); Hemoglobin 10.7 g/dL (12.2-16.2); Lymphocytes # 1.8 K/mm3 (0.7-4.5); Lymphocytes % 20.6 % (10-50); Mean Corpuscular Volume 94.2 fl (81-99); Mean Platelet Volume 6.8 fl (7.4-10.4); Monocytes # 0.7 K/mm3 (0.1-1.0); Monocytes % 7.6 % (1.7-9.3); Neutrophils # 5.7 K/mm3 (1.8-7.8); Neutrophils % 65.4 % (37.0-80.0); Platelet Count 387 K/mm3 (142-424); Red Blood Count 3.54 M/mm3 (4.20-5.40); Red Cell Distribution Width 15.1 % (11.5-17.5); White Blood Count 8.7 K/mm3 (4.8-10.8)
[2019-01-07 05:34] LABS: Albumin Level 2.4 gm/dL (3.4-5.0); Albumin/Globulin Ratio 0.4 (1.1-1.8); Anion Gap 13.5 mEq/L (5-15); Bilirubin,Total 0.3 mg/dL (0.2-1.0); Calcium 8.3 mg/dL (8.5-10.1); Globulin 6.2 gm/dl (1.3-3.2); Total Protein,Serum 8.6 gm/dL (6.4-8.2)
[2019-01-07 05:58] LABS: Activated Partial Thrombo Time 25.9 seconds (23.6-34.0); INR 1.08 (0.9-1.1); Prothrombin Time 11.2 seconds (9.4-11.8)
--- NOTE | 2019-01-07 07:33 | Pharmacy Consult Notes ---
[facility] Pharmacy VTE Monitoring - Patient Demographics Admission date: 01/07/19 Report Date: 01/07/19 Time: 07:33 Allergies/Adverse Reactions: Patient Allergies levocetirizine [From Xyzal] Allergy (Severe, Verified 08/26/18 09:07) TONGUE SWELLS, DIZZINESS linezolid [From Zyvox] Allergy (Severe, Verified 08/26/18 09:07) TONGUE SWELLS Penicillins Allergy (Intermediate, Verified 08/26/18 09:07) I-HIVES tetracycline Allergy (Intermediate, Verified 08/26/18 09:07) TONGUE SWELLS ciprofloxacin [From Cipro] Allergy (Mild, Verified 08/26/18 09:07) DIZZINESS nitrofurantoin [From Macrobid] Allergy (Mild, Verified 08/26/18 09:07) DIZZINESS Sulfa (Sulfonamide Antibiotics) Allergy (Mild, Verified 08/26/18 09:07) DIZZINESS Height: 1.6 m Weight: 55.962 kg Patient Problems: Current Active Problems MRSA pneumonia (Acute) Hemoptysis (Acute) Pulmonary nodules (Acute) COPD (chronic obstructive pulmonary disease) (Acute) - VTE Risk Labs: VTE Related Lab Results Hgb 10.7 g/dL (12.2-16.2) L 01/07/19 05:10 Hct 33.4 % (37.0-47.0) L 01/07/19 05:10 Plt Count 387 K/mm3 (142-424) 01/07/19 05:10 PT 11.2 seconds (9.4-11.8) 01/07/19 05:10 INR 1.08 (0.9-1.1) 01/07/19 05:10 APTT 25.9 seconds (23.6-34.0) 01/07/19 05:10 BUN 33 mg/dL (7-18) H 01/07/19 05:10 Creatinine 1.90 mg/dL (0.55-1.02) H 01/07/19 05:10 Estimated Creat Clear 20 mL/min (50-200) 01/07/19 05:10 VTE Score: 7 VTE Risk Level: Moderate Risk - Prophylaxis VTE Prophylaxis Ordered?: Yes Types of VTE Prophylaxis: TEDS Knee High Location of Applied Device: Bilateral Lower Extremeties - VTE Diagnosis Confirmed Treatment or plan recommended: Continue Current Treatment
--- NOTE | 2019-01-07 08:34 | Pharmacy Consult Notes ---
- Pharmacy Consult Date: 01/07/19 Time: 08:32 Referring provider: DR. FITCH Reason for Consult:: VANCOMYCIN DOSING Allergies and ADEs:: Allergies Allergy/AdvReac Type Severity Reaction Status Date / Time levocetirizine [From Xyzal] Allergy Severe TONGUE Verified 08/26/18 09:07 SWELLS, DIZZINESS linezolid [From Zyvox] Allergy Severe TONGUE Verified 08/26/18 09:07 SWELLS Penicillins Allergy Intermediate I-HIVES Verified 08/26/18 09:07 tetracycline Allergy Intermediate TONGUE Verified 08/26/18 09:07 SWELLS ciprofloxacin [From Cipro] Allergy Mild DIZZINESS Verified 08/26/18 09:07 nitrofurantoin Allergy Mild DIZZINESS Verified 08/26/18 09:07 [From Macrobid] Sulfa (Sulfonamide Allergy Mild DIZZINESS Verified 08/26/18 09:07 Antibiotics) Home Medications:: Home Medications Medication Instructions Recorded Confirmed Type multivit with min-folic 1 tab PO DAILY each 04/30/17 01/07/19 History acid-lutein 400 mcg-250 mcg chewable tablet pravastatin 40 mg tablet 40 mg PO HS 04/30/17 01/07/19 History vitamin B complex tablet 1 tab PO DAILY 04/30/17 01/07/19 History Metoprolol Succinate 100 mg PO HS 06/12/17 01/07/19 History Ferrous Sulfate [Iron] 325 mg PO TID 06/21/17 01/07/19 History Levothyroxine Sodium 75 mcg PO DAILY 06/21/17 01/07/19 History [Levothyroxine 75mcg (0.075mg) Tab] Pantoprazole Sodium [Protonix 40mg 40 mg PO DAILY 06/21/17 01/07/19 History tablet] Losartan Potassium 50 mg PO DAILY 04/26/18 01/07/19 History Aspirin [Aspirin 81mg chewable 81 mg PO DAILY 01/07/19 01/07/19 History tab] Height: 1.6 m Weight: 55.962 kg Laboratory Results:: Laboratory Results - last 24 hr 01/07/19 05:10: WBC 8.7, RBC 3.54 L, Hgb 10.7 L, Hct 33.4 L, MCV 94.2, MCH 30.1, MCHC 32.0, RDW 15.1, Plt Count 387, MPV 6.8 L, Neut % (Auto) 65.4, Lymph % (Auto) 20.6, [place] % (Auto) 7.6, Eos % (Auto) 5.7, Baso % (Auto) 0.8, Neut # (Auto) 5.7, Lymph # (Auto) 1.8, [place] # (Auto) 0.7, Eos # (Auto) 0.5 H, Baso # (Auto) 0.1 01/07/19 05:10: Sodium 138, Potassium 4.5, Chloride 104, Carbon Dioxide 25, Anion Gap 13.5, BUN 33 H, Creatinine 1.90 H, Estimated Creat Clear 20, Estimated GFR 25 L, Est GFR ( Amer) 31 L, Glucose 110 H, Calcium 8.3 L, Total Bilirubin 0.3, AST 52 H, ALT 50, Alkaline Phosphatase 80, Total Protein 8.6 H, Albumin 2.4 L, Globulin 6.2 H, Albumin/Globulin Ratio 0.4 L 01/07/19 05:10: Lactate 1.1 01/07/19 05:10: PT 11.2, INR 1.08, APTT 25.9 Medical History: Reports:: Cancer (colon, breast, basal cell carcinoma), Gastroesophageal Reflux Disease(GERD), Hyperlipidemia, Hypertension, MRSA, Renal Insufficiency Denies:: Diabetes Mellitus Type 1, Diabetes Mellitus Type 2, Internal Pacemaker, Seizures Assessment and Plan - Assessment and plan all Dx Assessment and Plan for all problems:: BASED ON PATIENT'S FACTORS, RECOMMENDED PATIENT CONTINUE WITH VANCOMYCIN 1000 MG Q48H STARTING ON 01/09/19 AM. WILL OBTAIN TROUGH LEVEL PRIOR TO 3RD DOSE OF VANCOMYCIN ON 01/11. PATIENT RECEIVED VANCOMYCIN 1250 MG X1 DOSE ON 01/07/19. PHARMACY WILL FOLLOW DAILY AND ADJUST APPROPRIATE.
--- NOTE | 2019-01-07 10:13 | History & Physical Report ---
*Admission Date: 01/07/19 <Lilliam Rodriguez 01/07/19 10:13> *Chief complaint: Coughing up blood <Lilliam Rodriguez 01/07/19 10:13> *History of present illness: Ms. Calderon is an 83-year-old female with a history of hypothyroidism, hypertension, esophageal reflux, breast cancer in 2007, positive MRSA in sputum, allergic rhinitis, and no carcinoma of the colon with resection, and carotid stenosis who presented to [facility] after waking up at 2:30 AM with hemoptysis. She states she had had a good day yesterday with the visit to her trim sawyer, shopping and lunch. She denies any cough and shortness of breath during these activities. She went to bed about 1030 last night and awakened with fullness in her chest after which she coughed up what appeared to be pure blood. She was somewhat short of breath. She called her niece who brought her to the emergency room for evaluation. CT of the chest was abnormal in the emergency room and she was admitted for further evaluation and treatment. She arrived into the room about 630 this morning. She has had no additional sleep. She states she still has a productive cough with blood-streaked sputum. She denies chest pain and is slightly short of breath. <RodriguezAshleighLilliam 01/07/19 10:30> [facility] History Medical History: Reports:: Cancer (colon, breast, basal cell carcinoma), Carotid Stenosis, Chronic Obstructive Pulmonary Disease (COPD), Gastroesophageal Reflux Disease(GERD), Hyperlipidemia, Hypertension, Lung Disease, MRSA, Renal Insufficiency Denies:: Diabetes Mellitus Type 1, Diabetes Mellitus Type 2, Internal Pacemaker, Seizures <RodriguezLilliam 01/07/19 10:30> *Have you ever received a pneumonia vaccine?: Yes <RodriguezLilliam 01/07/19 10:13> *Have you received a flu vaccine this season?: No <JenniferLilliam 01/07/19 10:13> Other Medical History: Reports: Anemia, Arthritis, Cataracts, Hypothyroidism. Denies: Blood Transfusion Reaction <JenniferLilliam 01/07/19 10:13> Comment:: Chronic kidney disease stage III <Lilliam Rodriguez 01/07/19 10:30> Laterality Cases: Right: Breast Biopsy, Lumpectomy, Bilateral: Other <Lilliam Rodriguez 01/07/19 10:13> Other Surgeries: Yes: Colon Resection, Hernia Repair, Skin Cancer Excision, Other. No: Pacemaker <Lilliam Rodriguez 01/07/19 10:13> Amputation: No <Lilliam Rodriguez 01/07/19 10:13> Fractures: No <Lilliam Rodriguez 01/07/19 10:13> Comment: Esophageal dilatation 2004 <Lilliam Rodriguez 01/07/19 10:30> - *Social History Educational Level: Attended College <Lilliam Rodriguez 01/07/19 10:13> Smoking Status: Former smoker <Lilliam Rodriguez 01/07/19 10:13> Alcohol Intake: never <Lilliam Rodriguez 01/07/19 10:13> Alcohol Intake Frequency:: holidays/special occasions only <Lilliam Rodriguez 01/07/19 10:13> Substance Use Type: denies use <Lilliam Rodriguez 01/07/19 10:13> *Occupational Status:: retired <Lilliam Rodriguez 01/07/19 10:13> Housing: house <Lilliam Rodriguez 01/07/19 10:13> Household Members: none <Lilliam Rodriguez 01/07/19 10:13> *Travel in the last 8 weeks: None <Lilliam Rodriguez 01/07/19 10:13> Family Hx:: Heart Attack <Lilliam Rodriguez 01/07/19 10:30> Review of Systems - Constitutional Denies chills, Denies fever(s) <Lilliam Rodriguez 01/07/19 10:30> - Eyes Denies change in vision <Lilliam Rodriguez 01/07/19 10:30> - ENT Denies ear pain, Denies headache(s), Denies sore throat <Lilliam Rodriguez 01/07/19 10:30> - *Cardiovascular Reports shortness of breath, Denies chest pain, Denies irregular heart rhythm, Denies leg swelling <Lilliam Rodriguez 01/07/19 10:30> - *Respiratory Reports chest congestion, Reports cough, Reports shortness of breath, Reports coughing up blood, Denies pain on inspiration, Denies wheezing <Lilliam Rodriguez - 01/07/19 10:30> - *Gastrointestinal Denies abdominal pain, Denies change in bowel habits, Denies change in stools, Denies coffee ground vomit, Denies constipation, Denies difficulty swallowing, Denies heartburn, Denies bright, red blood in stools, Denies nausea, Denies vomiting <[facility] 01/07/19 10:30> - *Genitourinary Denies painful urination <RodriguezLilliam - 01/07/19 10:30> - *Musculoskeletal Denies abnormal walking, Denies joint pain <[facility] 01/07/19 10:30> - *Neurologic Denies confusion, Denies seizure-like activity, Denies unsteadiness, Denies dizziness, Denies headache(s), Denies fainting <Lilliam Rodriguez 01/07/19 10:30> Meds Home Medications Medication Instructions Recorded Confirmed Type multivit with min-folic 1 tab PO DAILY each 04/30/17 01/07/19 History acid-lutein 400 mcg-250 mcg chewable tablet vitamin B complex tablet 1 tab PO DAILY 04/30/17 01/07/19 History RX: Metoprolol Succinate 100 mg PO HS 06/12/17 01/07/19 History RX: Ferrous Sulfate [Iron] 325 mg PO TID 06/21/17 01/07/19 History RX: Levothyroxine Sodium 75 mcg PO DAILY 06/21/17 01/07/19 History [Levothyroxine 75mcg (0.075mg) Tab] RX: Pantoprazole Sodium [Protonix 40 mg PO DAILY 06/21/17 01/07/19 History 40mg tablet] RX: Losartan Potassium 50 mg PO DAILY 04/26/18 01/07/19 History Aspirin [Adult Aspirin Regimen] 81 mg PO DAILY 01/07/19 01/07/19 History Atorvastatin Calcium [Atorvastatin 40 mg PO HS 01/07/19 01/07/19 History 40mg Tab] <Delfin Mccauley - 01/07/19 11:37> Allergies Allergy/AdvReac Type Severity Reaction Status Date / Time levocetirizine [From za] Allergy Severe TONGUE Verified 08/26/18 09:07 SWELLS, DIZZINESS linezolid [From Zyvox] Allergy Severe TONGUE Verified 08/26/18 09:07 SWELLS Penicillins Allergy Intermediate I-HIVES Verified 08/26/18 09:07 tetracycline Allergy Intermediate TONGUE Verified 08/26/18 09:07 SWELLS ciprofloxacin [From Cipro] Allergy Mild DIZZINESS Verified 08/26/18 09:07 nitrofurantoin Allergy Mild DIZZINESS Verified 08/26/18 09:07 [From Macrobid] Sulfa (Sulfonamide Allergy Mild DIZZINESS Verified 08/26/18 09:07 Antibiotics) <Harrah,Delfin - 01/07/19 11:37> Exam Vital signs and Labs for Last 24 Hours: Temp Pulse Resp BP Pulse Ox 97.6 F 77 18 145/72 H 94 L 01/07/19 08:00 01/07/19 08:00 01/07/19 08:00 01/07/19 08:00 01/07/19 08:00 Laboratory Results - last 24 hr 01/07/19 05:10: WBC 8.7, RBC 3.54 L, Hgb 10.7 L, Hct 33.4 L, MCV 94.2, MCH 30.1, MCHC 32.0, RDW 15.1, Plt Count 387, MPV 6.8 L, Neut % (Auto) 65.4, Lymph % (Auto) 20.6, [place] % (Auto) 7.6, Eos % (Auto) 5.7, Baso % (Auto) 0.8, Neut # (Auto) 5.7, Lymph # (Auto) 1.8, [place] # (Auto) 0.7, Eos # (Auto) 0.5 H, Baso # (Auto) 0.1 01/07/19 05:10: Sodium 138, Potassium 4.5, Chloride 104, Carbon Dioxide 25, Anion Gap 13.5, BUN 33 H, Creatinine 1.90 H, Estimated Creat Clear 20, Estimated GFR 25 L, Est GFR ( Amer) 31 L, Glucose 110 H, Calcium 8.3 L, Total Bilirubin 0.3, AST 52 H, ALT 50, Alkaline Phosphatase 80, Total Protein 8.6 H, Albumin 2.4 L, Globulin 6.2 H, Albumin/Globulin Ratio 0.4 L 01/07/19 05:10: Lactate 1.1 01/07/19 05:10: PT 11.2, INR 1.08, APTT 25.9 <Delfin Mccauley - 01/07/19 11:37> Temp Pulse Resp BP Pulse Ox 97.6 F 77 18 145/72 H 94 L 01/07/19 08:00 01/07/19 08:00 01/07/19 08:00 01/07/19 08:00 01/07/19 08:00 Laboratory Results - last 24 hr 01/07/19 05:10: WBC 8.7, RBC 3.54 L, Hgb 10.7 L, Hct 33.4 L, MCV 94.2, MCH 30.1, MCHC 32.0, RDW 15.1, Plt Count 387, MPV 6.8 L, Neut % (Auto) 65.4, Lymph % (Auto) 20.6, [place] % (Auto) 7.6, Eos % (Auto) 5.7, Baso % (Auto) 0.8, Neut # (Auto) 5.7, Lymph # (Auto) 1.8, [place] # (Auto) 0.7, Eos # (Auto) 0.5 H, Baso # (Auto) 0.1 01/07/19 05:10: Sodium 138, Potassium 4.5, Chloride 104, Carbon Dioxide 25, Anion Gap 13.5, BUN 33 H, Creatinine 1.90 H, Estimated Creat Clear 20, Estimated GFR 25 L, Est GFR ( Amer) 31 L, Glucose 110 H, Calcium 8.3 L, Total Bilirubin 0.3, AST 52 H, ALT 50, Alkaline Phosphatase 80, Total Protein 8.6 H, Albumin 2.4 L, Globulin 6.2 H, Albumin/Globulin Ratio 0.4 L 01/07/19 05:10: Lactate 1.1 01/07/19 05:10: PT 11.2, INR 1.08, APTT 25.9 <Lilliam Rodriguez - 01/07/19 10:13> I & O for Last 24 hours: Intake & Output 01/04/19 01/05/19 01/06/19 01/07/19 23:59 23:59 23:59 23:59 Intake Total 370 / 370 Balance 370 / 370 Weight 123 lb 6 oz <Delfin Mccauley - 01/07/19 11:37> Intake & Output 01/04/19 01/05/19 01/06/19 01/07/19 11:59 11:59 11:59 11:59 Intake Total 370 / 370 Balance 370 / 370 Weight 123 lb 6 oz <Lilliam Rodriguez 01/07/19 10:13> Microbiology Reports for the Last 24 Hours: Microbiology 01/07/19 05:50 Sputum - Expectorated Sputum Gram Stain - Final <Delfin Mccauley - 01/07/19 11:37> Microbiology 01/07/19 05:50 Sputum - Expectorated Sputum Gram Stain - Final <Lilliam Rodriguez - 01/07/19 10:13> Radiology Reports for the Last 24 Hours: CT of the chest 01/07/2019 IMPRESSION: 1. Numerous pulmonary nodules which have increased in size suspicious for metastatic disease. New lesion in the right hepatic lobe also suspicious for metastatic disease. 2. Increasing bilateral lower lobe mucous plugging with bronchiectasis <Lilliam Rodrgiuez 01/07/19 10:30> - Constitutional no acute distress <Lilliam Rodriguez 01/07/19 10:30> Comments: Appears comfortable. Conversant <Lilliam Rodriguez 01/07/19 10:30> - *Routine HEENT Exam Head: Present: normocephalic, atraumatic <Lilliam Rodriguez 01/07/19 10:30> Eye: Present: PERRL. Absent: scleral injection, conjunctivae pink <Lilliam Rodriguez 01/07/19 10:30> ENT: Present: mucous membranes moist, oropharynx clear <Lilliam Rodriguez 01/07/19 10:30> - *Routine Neck Exam Present: supple. Absent: carotid bruit, lymphadenopathy, thyromegaly <Lilliam Rodriguez 01/07/19 10:30> - *Routine Respiratory Exam Comments: Bilateral crackles throughout anteriorly and posteriorly <Lilliam Rodriguez 01/07/19 10:30> - *Routine Cardiovascular Exam Present: RRR <Lilliam Rodriguez 01/07/19 10:30> - *Routine Abdominal Exam Present: soft, normoactive bowel sounds. Absent: tenderness, distended <Lilliam Rodriguez 01/07/19 10:30> - *Routine Extremities Exam Absent: edema, calf tenderness <Lilliam Rodriguez 01/07/19 10:30> - *Routine Neurological Exam Present: alert, oriented X3 <Lilliam Rodriguez 01/07/19 10:30> Assessment and Plan (1) Hemoptysis Current visit: Yes Status: Acute Category: Medical Code(s): R04.2 - Hemoptysis (2) COPD (chronic obstructive pulmonary disease) Current visit: Yes Status: Chronic Category: Medical Code(s): J44.9 - Chronic obstructive pulmonary disease, unspecified (3) Pulmonary nodules Current visit: Yes Status: Acute Category: Medical Code(s): R91.8 - Other nonspecific abnormal finding of lung field (4) HTN (hypertension) Current visit: No Status: Chronic Category: Medical Code(s): I10 - Essential (primary) hypertension (5) Anemia Current visit: Yes Status: Chronic Category: Medical Code(s): D64.9 - Anemia, unspecified (6) Renal insufficiency Current visit: Yes Status: Chronic Category: Medical Code(s): N28.9 - Disorder of kidney and ureter, unspecified <Deflin Mccauley - 01/07/19 11:37> (1) Hemoptysis Current visit: Yes Status: Acute Category: Medical Code(s): R04.2 - Hemoptysis (2) COPD (chronic obstructive pulmonary disease) Current visit: Yes Status: Chronic Category: Medical Code(s): J44.9 - Chronic obstructive pulmonary disease, unspecified (3) Pulmonary nodules Current visit: Yes Status: Acute Category: Medical Code(s): R91.8 - Other nonspecific abnormal finding of lung field (4) HTN (hypertension) Current visit: No Status: Chronic Category: Medical Code(s): I10 - Essential (primary) hypertension (5) Anemia Current visit: Yes Status: Chronic Category: Medical Code(s): D64.9 - Anemia, unspecified (6) Renal insufficiency Current visit: Yes Status: Chronic Category: Medical Code(s): N28.9 - Disorder of kidney and ureter, unspecified <JenniferLilliam - 01/07/19 10:15> - Assessment and plan all Dx Assessment and Plan for all problems:: Saw patient, agree with above note. <Delfin Mccauley - 01/07/19 11:37> Patient has been started on cefepime and vancomycin with pending cultures. Duo nebs also have been initiated. <Lilliam Rodriguez - 01/07/19 10:30>
[2019-01-08 07:13] LABS: Basophils % 0.1 % (0.1-2.0); Eosinophils % 0.1 % (0.1-12.0); Hematocrit 29.9 % (37.0-47.0); Hemoglobin 9.2 g/dL (12.2-16.2); Lymphocytes # 0.7 K/mm3 (0.7-4.5); Lymphocytes % 5.6 % (10-50); Mean Corpuscular HGB Conc 30.9 g/dL (31.8-35.4); Mean Corpuscular Volume 94.5 fl (81-99); Monocytes # 0.5 K/mm3 (0.1-1.0); Neutrophils # 10.8 K/mm3 (1.8-7.8); Neutrophils % 90.3 % (37.0-80.0); Platelet Count 328 K/mm3 (142-424); Red Blood Count 3.17 M/mm3 (4.20-5.40); Red Cell Distribution Width 14.7 % (11.5-17.5)
[2019-01-08 07:24] LABS: Anion Gap 15.9 mEq/L (5-15); Calcium 8.1 mg/dL (8.5-10.1)
[2019-01-08 08:00] LABS: Lymphocytes % 5 % (10-50); Monocytes % 4 % (2-9); Neutrophils % 86 % (42-76); Total Cells Counted 100
--- NOTE | 2019-01-08 08:08 | Progress Note ---
<Lilliam Rodriguez - Last Filed: 01/08/19 08:05> Internal Medicine - PN: Subj *Date: 01/08/19 *Time: 08:05 Interval history: Breathing treatment this last night. States her blood pressure went up and her heart rate was racing. Breathing is better this morning. She denies chest pain. She is hoping to go home today. Exam Vital signs and Labs for Last 24 Hours: Temp Pulse Resp BP Pulse Ox 97.7 F 89 18 148/80 H 94 L 01/08/19 04:00 01/08/19 04:00 01/08/19 04:00 01/08/19 04:00 01/08/19 04:00 Laboratory Results - last 24 hr 01/08/19 06:38: WBC 12.0 H D, RBC 3.17 L, Hgb 9.2 L, Hct 29.9 L, MCV 94.5, MCH 29.2, MCHC 30.9 L, RDW 14.7, Plt Count 328, MPV 7.0 L, Neut % (Auto) 90.3 H, Lymph % (Auto) 5.6 L, [place] % (Auto) 4.0, Eos % (Auto) 0.1, Baso % (Auto) 0.1, Neut # (Auto) 10.8 H, Lymph # (Auto) 0.7, [place] # (Auto) 0.5, Eos # (Auto) 0.0, Baso # (Auto) 0.0, Total Counted 100, Neutrophils % (Manual) 86 H, Band Neutrophils % 5.0, Lymphocytes % (Manual) 5 L, Monocytes % (Manual) 4, Platelet Estimate Normal 01/08/19 06:38: Sodium 138, Potassium 4.9, Chloride 108 H, Carbon Dioxide 19 L D , Anion Gap 15.9 H, BUN 34 H, Creatinine 1.82 H, Estimated Creat Clear 21, Johanne mated GFR 27 L, Est GFR ( Amer) 32 L, Glucose 162 H, Calcium 8.1 L I & O for Last 24 hours: Intake & Output 01/05/19 01/06/19 01/07/19 01/08/19 11:59 11:59 11:59 11:59 Intake Total 370 / 370 1263 / 1263 Balance 370 / 370 1263 / 1263 Weight 123 lb 6 oz 122 lb 6.001 oz Microbiology Reports for the Last 24 Hours: Microbiology 01/07/19 05:50 Sputum - Expectorated Sputum Gram Stain - Final - Constitutional no acute distress Comments: Sitting on the side of the bed eating her breakfast. Appears comfortable. Converses without difficulty. - *Routine Respiratory Exam Comments: Bilateral basilar crackles. Much improved from yesterday. - *Routine Cardiovascular Exam Present: RRR - *Routine Abdominal Exam Present: soft, normoactive bowel sounds. Absent: tenderness - *Routine Extremities Exam Absent: edema, calf tenderness - *Routine Neurological Exam Present: alert, oriented X3 Assessment and Plan (1) Hemoptysis Current visit: Yes Status: Acute Category: Medical Code(s): R04.2 - Hemoptysis (2) COPD (chronic obstructive pulmonary disease) Current visit: Yes Status: Chronic Category: Medical Code(s): J44.9 - Chronic obstructive pulmonary disease, unspecified (3) Pulmonary nodules Current visit: Yes Status: Acute Category: Medical Code(s): R91.8 - Other nonspecific abnormal finding of lung field (4) HTN (hypertension) Current visit: No Status: Chronic Category: Medical Code(s): I10 - Essential (primary) hypertension (5) Anemia Current visit: Yes Status: Chronic Category: Medical Code(s): D64.9 - Anemia, unspecified (6) Renal insufficiency Current visit: Yes Status: Chronic Category: Medical Code(s): N28.9 - Disorder of kidney and ureter, unspecified - Assessment and plan all Dx Assessment and Plan for all problems:: We will discontinue albuterol nebs. Will try Xopenex nebs. Sputum cultures are still pending. Saline lock. Patient wishes to go home. <Delfin Mccauley - Last Filed: 01/08/19 08:24> Internal Medicine - PN: Subj *Date: 01/08/19 *Time: 08:23 Exam Vital signs and Labs for Last 24 Hours: Temp Pulse Resp BP Pulse Ox 97.5 F L 82 19 148/81 H 93 L 01/08/19 08:00 01/08/19 08:00 01/08/19 08:00 01/08/19 08:00 01/08/19 08:00 Laboratory Results - last 24 hr 01/08/19 06:38: WBC 12.0 H D, RBC 3.17 L, Hgb 9.2 L, Hct 29.9 L, MCV 94.5, MCH 29.2, MCHC 30.9 L, RDW 14.7, Plt Count 328, MPV 7.0 L, Neut % (Auto) 90.3 H, Lymph % (Auto) 5.6 L, [place] % (Auto) 4.0, Eos % (Auto) 0.1, Baso % (Auto) 0.1, Neut # (Auto) 10.8 H, Lymph # (Auto) 0.7, [place] # (Auto) 0.5, Eos # (Auto) 0.0, Baso # (Auto) 0.0, Total Counted 100, Neutrophils % (Manual) 86 H, Band N eutrophils % 5.0, Lymphocytes % (Manual) 5 L, Monocytes % (Manual) 4, Platelet Estimate Normal 01/08/19 06:38: Sodium 138, Potassium 4.9, Chloride 108 H, Carbon Dioxide 19 L D , Anion Gap 15.9 H, BUN 34 H, Creatinine 1.82 H, Estimated Creat Clear 21, Estimated GFR 27 L, Est GFR ( Amer) 32 L, Glucose 162 H, Calcium 8.1 L I & O for Last 24 hours: Intake & Output 01/05/19 01/06/19 01/07/19 01/08/19 23:59 23:59 23:59 23:59 Intake Total 1633 / 1633 240 / 240 Balance 1633 / 1633 240 / 240 Weight 123 lb 6 oz 122 lb 6.001 oz Microbiology Reports for the Last 24 Hours: Microbiology 01/07/19 05:50 Sputum - Expectorated Sputum Gram Stain - Final Assessment and Plan (1) Hemoptysis Current visit: Yes Status: Acute Category: Medical Code(s): R04.2 - Hemoptysis (2) COPD (chronic obstructive pulmonary disease) Current visit: Yes Status: Chronic Category: Medical Code(s): J44.9 - Chronic obstructive pulmonary disease, unspecified (3) Pulmonary nodules Current visit: Yes Status: Acute Category: Medical Code(s): R91.8 - Other nonspecific abnormal finding of lung field (4) HTN (hypertension) Current visit: No Status: Chronic Category: Medical Code(s): I10 - Essential (primary) hypertension (5) Anemia Current visit: Yes Status: Chronic Category: Medical Code(s): D64.9 - Anemia, unspecified (6) Renal insufficiency Current visit: Yes Status: Chronic Category: Medical Code(s): N28.9 - Disorder of kidney and ureter, unspecified - Assessment and plan all Dx Assessment and Plan for all problems:: Saw patient, agree with above note.
--- NOTE | 2019-01-10 16:39 | Discharge Summary ---
General - General Admission date:: 01/07/19 Discharge date: 01/08/19 HPI HPI: Ms. Calderon is an 83-year-old female with a history of hypothyroidism, hypertension, esophageal reflux, breast cancer in 2007, positive MRSA in sputum, allergic rhinitis, adenocarcinoma of the colon with resection, and carotid stenosis who presented to [facility] after waking up at 2:30 AM with hemoptysis. 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 She denies any cough and shortness of breath during these activities. She went to bed about 1030 last night and awakened with fullness in her chest after which she coughed up what appeared to be pure blood. She was somewhat short of breath. She called her niece who brought her to the emergency room for evaluation. CT of the chest was abnormal in the emergency room and she was admitted for further evaluation and treatment. She arrived into the room about 630 this morning. She has had no additional sleep. She states she still has a pro ductive cough with blood-streaked sputum. She denies chest pain and is slightly short of breath. Hospital Course Hospital Course: The patient's CT scan showed numerous pulmonary nodules which had increased in size and were suspicious for some metastatic disease. There was a new lesion in the right hepatic lobe as well that was suspicious for metastatic disease. There was increasing bilateral lower lobe mucous plugging with bronchiectasis. The patient was started on cefepime and vancomycin and duo nebs were initiated. Dr. Mccauley discussed the findings of her CT with the patient. By 01/08/2019, her breathing was better and she felt better. She wanted to go home. The albuterol nebs did cause tachycardia, therefore this was discontinued and she was started on Xopenex. She did well throughout the day and was weaned to room air and ambulated in the hassan without difficulty. She wanted to be discharged home and was stable to be discharged on clindamycin. Of note her sputum culture did come back after discharge and was positive for MRSA. It was resistant to clindamycin. Her blood culture showed no growth. Objective Vital signs: Temp Pulse Resp BP Pulse Ox 97.5 F L 89 19 160/85 H 96 01/08/19 15:46 01/08/19 15:46 01/08/19 15:46 01/08/19 15:46 01/08/19 15:46 Narrative: - Constitutional no acute distress Comments: Appears comfortable. Conversant - *Routine HEENT Exam Head: Present: normocephalic, atraumatic Eye: Present: PERRL. Absent: scleral injection, conjunctivae pink ENT: Present: mucous membranes moist, oropharynx clear - *Routine Neck Exam Present: supple. Absent: carotid bruit, lymphadenopathy, thyromegaly - *Routine Respiratory Exam Comments: Bilateral crackles throughout anteriorly and posteriorly - *Routine Cardiovascular Exam Present: RRR - *Routine Abdominal Exam Present: soft, normoactive bowel sounds. Absent: tenderness, distended - *Routine Extremities Exam Absent: edema, calf tenderness - *Routine Neurological Exam Present: alert, oriented X3 Results Labs on day of discharge: Preliminary micro results at discharge 01/07/19 05:50 Sputum Culture - Preliminary Sputum - Expectorated Sputum Staphylococcus aureus 01/07/19 05:10 Blood Culture - Preliminary Blood NO GROWTH AFTER 48 HOURS 01/07/19 05:10 Blood Culture - Preliminary Blood NO GROWTH AFTER 48 HOURS DS: Diagnosis - Discharge Diagnosis (1) Hemoptysis Status: Acute (2) COPD (chronic obstructive pulmonary disease) Status: Chronic (3) Pulmonary nodules Status: Acute (4) HTN (hypertension) Status: Chronic (5) Anemia Status: Chronic (6) Renal insufficiency Status: Chronic Discharge Plan - Patient Discharge Instructions ACTIVITY: Continue current activity DIET: continue same diet Patient Instructions: DI for Chronic Obstructive Pulmonary Disease, DI for Hemoptysis - Follow up Plan Follow up with: Delfin Mccauley MD [Primary Care Provider] - 01/14/19 (please call for appointment ) Disposition: Home, Self-[facility] Medications: Home Medications Medication Instructions Recorded Confirmed Type multivit with min-folic 1 tab PO DAILY each 04/30/17 01/07/19 History acid-lutein 400 mcg-250 mcg chewable tablet vitamin B complex tablet 1 tab PO DAILY 04/30/17 01/07/19 History Metoprolol Succinate 100 mg PO HS 06/12/17 01/07/19 History Ferrous Sulfate [Iron] 325 mg PO TID 06/21/17 01/07/19 History Levothyroxine Sodium 75 mcg PO DAILY 06/21/17 01/07/19 History [Levothyroxine 75mcg (0.075mg) Tab] Pantoprazole Sodium [Protonix 40mg 40 mg PO DAILY 06/21/17 01/07/19 History tablet] Losartan Potassium 50 mg PO DAILY 04/26/18 01/07/19 History Aspirin [Adult Aspirin Regimen] 81 mg PO DAILY 01/07/19 01/07/19 History Atorvastatin Calcium [Atorvastatin 40 mg PO HS 01/07/19 01/07/19 History 40mg Tab] Clindamycin HCl [Clindamycin HCl 300 mg PO Q8 #21 cap 01/08/19 Rx 300mg Cap] Prescriptions/Medication Reconciliation: New Clindamycin HCl [Clindamycin HCl 300mg Cap] 300 mg PO Q8 #21 cap Continued multivit with min-folic acid-lutein 400 mcg-250 mcg chewable tablet 1 tab PO DAILY each vitamin B complex tablet 1 tab PO DAILY Metoprolol Succinate 100 mg PO HS Pantoprazole Sodium [Protonix 40mg tablet] 40 mg PO DAILY Ferrous Sulfate [Iron] 325 mg PO TID Aspirin [Adult Aspirin Regimen] 81 mg PO DAILY Levothyroxine Sodium [Levothyroxine 75mcg (0.075mg) Tab] 75 mcg PO DAILY Losartan Potassium 50 mg PO DAILY Atorvastatin Calcium [Atorvastatin 40mg Tab] 40 mg PO HS - Problem Reconciliation Problems Reviewed?: Yes
== END 2019-01-08 18:32 | disposition home or self-care (01) ==
LOC: 2ND 04:20 → ER 04:20 → 2ND 06:35
PROVIDERS: ADMIT Family Medicine; ATTEND Family Medicine
CPT/HCPCS: 36415; 71250; 80048; 80053; 83605; 85007; 85025; 85610; 85730; 87040; 87070; 87077; 87186; 87205; 94640; 94761; 96365; 99284; G0378; J3370

== ENCOUNTER → 2019-01-14 11:54 | Outpatient (CLI) | payer MEDICARE, SELFPAY ==
--- NOTE | 2019-01-14 11:58 | XR_ITS ---
PROCEDURE: XR CHEST 2V CLINICAL HISTORY: BRONCHITIS, HEMOPTYSIS, PULMONARY NODULES COMPARISON: CT CHEST WO CON from 01/07/2019 the FINDINGS: Cardiomegaly without failure. Chronic interstitial changes Left upper lobe mass at 3.5 cm. Scattered nodular opacities are present in both lower lobes consistent with metastatic disease. There is a small right effusion. Lower thoracic scoliosis convex right. Thoracic kyphosis IMPRESSION: Pulmonary metastasis with chronic changes. Overall no significant change Dictated by: Ezekiel Angelo MD 01/14/2019 12:50 Electronically signed by Ezekiel Angelo MD in [place] 01/14/2019 12:50
== END ==
PROVIDERS: PCP Family Medicine; Visit Provider Family Medicine
DX: J40 Bronchitis, not specified as acute or chronic (principal); R04.2 Hemoptysis; R91.8 Other nonspecific abnormal finding of lung field
CPT/HCPCS: 71046

== ENCOUNTER → 2019-02-24 10:31 | Outpatient (CLI) | payer MEDICARE, SELFPAY ==
--- NOTE | 2019-02-24 10:38 | XR_ITS ---
PROCEDURE: XR FOOT LT MIN 3V CLINICAL INDICATION: foot pain Left foot pain and swelling COMPARISON: No exams were available for comparison FINDINGS: No fracture or dislocation. No lytic or blastic change. There is normal mineralization. There are osteoarthritic changes of the 2nd metatarsophalangeal joint with cortical irregularity and subcortical cystic change at the distal aspect of the 2nd metatarsal and may represent posttraumatic arthritic change. Avascular necrosis of the head of the 2nd metatarsal is also a consideration. There are minimal osteoarthritic changes of the 1st MTP joint. Small calcaneal spur noted Other findings:None. IMPRESSION: 1. Mild osteoarthritic change of the 1st MTP joint with subarticular cystic changes and cortical irregularity of the head of the 2nd metatarsal which may be due to osteoarthritis or evolving avascular necrosis 2. Mild osteoarthritis of the 1st MTP joint Dictated by: Ezekiel Angelo MD 02/24/2019 12:00 Electronically signed by Ezekiel Angelo MD in [facility] 02/24/2019 12:00
== END ==
PROVIDERS: PCP Family Medicine; Visit Provider Nurse Practitioner Family
DX: M79.672 Pain in left foot (principal)
CPT/HCPCS: 73630

== ENCOUNTER → 2019-04-14 07:46 | Outpatient (CLI) | payer MEDICARE, SELFPAY ==
--- NOTE | 2019-04-14 07:53 | CT_ITS ---
PROCEDURE: CT ABDOMEN PELVIS WO CON CLINICAL HISTORY: NEOPLASM OF LIVER COMPARISON: ABDPELW/O CT ABD PELVIS W/O CONTRAST from 01/04/2017 CT CHEST WO CON from 04/14/2019 comparison is also made with CT of the chest from 04/08/[address] of the chest performed on the same day. TECHNIQUE: Axial images obtained with sagittal and coronal reformats. All CT scans at the facility use one or more dose reduction, viz: automated exposure control, ma/kV adjustment per patient size (including targeted exams where dose is matched to indication, i.e. head), or iterative reconstruction technique. FINDINGS: When compared with CT of the chest which included the upper abdomen from 01/07/2019, there is increase in number and size of the a panic lesions especially of the right hepatic lobe lesion are ready described on the CT chest report performed on the same day. There are clips from cholecystectomy. Pancreas, and spleen are stable and the hypodense nodule involving the caudal tip of the spleen is stable. Adrenal glands are normal. Kidneys are normal. There are some vascular calcified plaques without dilatation. GI tract is unremarkable and there are surgical sutures related to the cecum. Appendix is not visualized. There is no abnormal adenopathy, ascites or free air. Pelvic structures including visualized portions of the uterus and urinary bladder are normal. There is no acute osseous process. IMPRESSION: Increased size and number of metastatic hepatic lesions. Stable nonspecific lower pole splenic lesion. Dictated by: Jose Guadalupe Barcenas 04/14/2019 13:43 Electronically signed by Jose Guadalupe Barcenas in [facility] 04/14/2019 13:43
--- NOTE | 2019-04-14 07:53 | CT_ITS ---
PROCEDURE: CT CHEST WO CON CLINICAL INDICATION: NEOPLASM OF LUNG COMPARISON: CT CHEST WO CON from 01/07/2019 TECHNIQUE: Axial images obtained with sagittal and coronal reformats. All CT scans at the facility use one or more dose reduction, viz: automated exposure control, ma/kV adjustment per patient size (including targeted exams where dose is matched to indication, i.e. head), or iterative reconstruction technique. FINDINGS: There has been increased size of many of the lung nodules especially left upper lobe subpleural nodule which now measures 3.8 centimeters. There is also greater nodularity at the left hilum there is soft tissue density now occupying the left upper lobe anterior segment bronchial with associated confluent opacification in the anterior segment of the left lower lobe. There are still some filling defects in several bilateral lower lobe bronchials. There is persistent bronchiectasis as well as interstitial prominence. There are some persistent irregular strands of increased density in the lower left apex. Atherosclerotic vascular disease appears stable as well as the mitral valve calcifications. There are coronary artery calcified plaques. There are stable small noncalcified mediastinal lymph nodes. There is increased number and size of the a patent lesions with the largest right hepatic lobe lesion is 2.6 centimeters. Adrenal glands are normal. There is a stable hypodense rounded focus at the caudal tip of the spleen. IMPRESSION: Interval progression of the metastatic disease with enlargement of pre-existing lung nodules with development of probable tumor invasion or aspirated secretions causing atelectasis/consolidation in the anterior segment left lower lobe. Increasing liver metastatic neoplastic disease. Splenic lesion is more nonspecific and stable. Areas of retained or aspirated secretions are still present in the lower lobe bronchials. Stable interstitial prominence, could be fibrosis although considering history lymphangitic carcinomatosis is not entirely ruled out. Stable scarring in the left apex. Dictated by: Jose Guadalupe Barcenas 04/14/2019 13:23 Electronically signed by Jose Guadalupe Barcenas in [facility] 04/14/2019 13:23
== END ==
PROVIDERS: PCP Family Medicine; Visit Provider Family Medicine
DX: D38.1 Neoplasm of uncertain behavior of trachea, bronchus and lung (principal); D37.6 Neoplasm of uncertain behavior of liver, gallbladder and bile ducts
CPT/HCPCS: 71250; 74176